=== PATIENT | male | born 1930 | race Two or more races ===

== ENCOUNTER 2018-09-29 09:54 | Emergency (ER) | payer MEDICARE ==
[~2018-09-29] VITALS: Ht 177.8 cm; Wt 84.4 kg
[2018-09-29 10:05] VITALS: BP 145/78
--- NOTE | 2018-09-29 10:42 | NUR ---
for discharge- ACI given verbalized understanding Home ambulatory in stable condition
== END 2018-09-29 10:42 | disposition home or self-care (01) ==
LOC: ER 09:56
DX: B35.6 Tinea cruris (principal); I10 Essential (primary) hypertension; E11.42 Type 2 diabetes mellitus with diabetic polyneuropathy; Z96.659 Presence of unspecified artificial knee joint; Z98.890 Other specified postprocedural states; Z60.2 Problems related to living alone
CPT/HCPCS: 99283; A4606; Z7610

== ENCOUNTER 2018-11-10 13:25 | Emergency (ER) | payer MEDICARE ==
[~2018-11-10] VITALS: Ht 180.3 cm; Wt 82.6 kg
--- NOTE | 2018-11-10 13:43 | NUR ---
C/O L RIB AREA PAIN S/P FALL, PT UNABLE TO RECALL IF HE SLIPPED OR FAINTED. DID NOT HIT HEAD, -KO. STATES HE WENT TO THE STORE AND WALKED AROUND AFTER FALL, THEN DECIDED TO COME HERE. PT IS AOX4, AMB, VSS, RR EVEN AND UNLABORED. SKIN WARM, DRY, INTACT. DENIES SOB, DIZZINESS, WEAKNESS, N/V. NO ACUTE DISTRESS NOTED. READY FOR EVAL.
--- NOTE | 2018-11-10 14:12 | NUR ---
XRAY AT BEDSIDE
--- NOTE | 2018-11-10 14:13 | NUR ---
PHLEB AT BEDSIDE FOR BLOOD DRAW
[2018-11-10 14:33] LABS: BASOPHILS % (AUTO) 0.5 % (0.0-2.0); EOSINOPHILS % (AUTO) 2.3 % (0.0-6.0); HEMATOCRIT 37 % (39-51); HEMOGLOBIN 12.2 g/dL (13.5-17.5); LYMPHOCYTES # (AUTO) 1.7 /CMM (0.8-4.8); LYMPHOCYTES % (AUTO) 18.8 % (20.0-44.0); MEAN CORPUSCULAR HGB CONC 33 g/dl (31.0-36.0); MEAN CORPUSCULAR VOLUME 92 fL (80-96); MONOCYTES # (AUTO) 0.6 /CMM (0.1-1.30); MONOCYTES % (AUTO) 6.7 % (2.0-12.0); NEUTROPHILS # (AUTO) 6.6 /CMM (1.8-8.9); NEUTROPHILS % (AUTO) 71.7 % (43.0-81.0); PLATELET COUNT (AUTO) 175 /CMM (150-450); WHITE BLOOD COUNT (AUTO) 9.2 K/uL (4.3-11.0)
[2018-11-10] MEDS ORDERED: DULO20CA18 PO (14:33)
[2018-11-10] MEDS ORDERED: ATOR10TA PO (14:33)
[2018-11-10] MEDS ORDERED: DUTA0.5C15 PO (14:33)
[2018-11-10] MEDS ORDERED: AMLO-62 PO (14:33)
[2018-11-10] MEDS ORDERED: LINA5TAB PO (14:33)
[2018-11-10] MEDS ORDERED: METF500T7 PO (14:33)
[2018-11-10] MEDS ORDERED: OMEP40CA37 PO (14:33)
[2018-11-10] MEDS ORDERED: DOXA4TAB3 PO (14:33)
[2018-11-10 14:49] LABS: CALCIUM, SERUM 8.8 mg/dL (8.5-10.1); CARBON DIOXIDE 30 mmol/L (21-32); CHLORIDE 104 mmol/L (98-107); GLUCOSE 113 mg/dL (74-106); POTASSIUM 4.1 mmol/L (3.5-5.1); SODIUM SERUM 140 mmol/L (136-145); UREA NITROGEN, BLOOD 26 mg/dL (7-18)
[2018-11-10 15:07] LABS: ALANINE AMINOTRANSFERASE 20 U/L (12-78); ALBUMIN 3.2 g/dL (3.4-5.0); ALKALINE PHOSPHATASE 105 U/L (46-116); ASPARTATE AMINOTRANSFERASE 12 U/L (15-37); BILIRUBIN,TOTAL 0.2 mg/dL (0.2-1.0); TOTAL PROTEIN, SERUM 6.7 g/dL (6.4-8.2)
[2018-11-10] MEDS ORDERED: IBUPROFEN 600 MG TABLET PO ONE (15:56)
--- NOTE | 2018-11-10 15:58 | NUR ---
PT RESTING COMFORTABLY IN BED. VSS. NO COMPLAINTS AT THIS TIME. WILL CONT TO MONITOR.
[2018-11-10] MEDS: IBUPROFEN 600 MG TABLET PO ONE (16:02)
[2018-11-10] MEDS: IV NS 0.9% 1,000 ML BAG IV ONE (16:11)
--- NOTE | 2018-11-10 16:12 | NUR ---
PT READY FOR DISCHARGE, PER MD PT CAN DRINK WATER INSTEAD OF IVF.
--- NOTE | 2018-11-10 16:29 | NUR ---
Patient discharged to home in stable condition. Written and verbal after care instructions given. Patient verbalizes understanding of instruction.
[2018-11-10 16:41] VITALS: BP 159/89
== END 2018-11-10 16:29 | disposition home or self-care (01) ==
LOC: ER 13:29
DX: S20.212A Contusion of left front wall of thorax, initial encounter (principal); E86.0 Dehydration; I10 Essential (primary) hypertension; E11.9 Type 2 diabetes mellitus without complications; G62.9 Polyneuropathy, unspecified; N40.0 Benign prostatic hyperplasia without lower urinary tract symptoms; R00.1 Bradycardia, unspecified; Z96.659 Presence of unspecified artificial knee joint; Z98.890 Other specified postprocedural states; Z60.2 Problems related to living alone; W01.198A Fall on same level from slipping, tripping and stumbling with subsequent striking against other object, initial encounter; Y93.89 Activity, other specified; Y92.89 Other specified places as the place of occurrence of the external cause; Y99.8 Other external cause status
CPT/HCPCS: 36415; 71100-TC; 73030-TC; 80048-TC; 80076-TC; 84484-TC; 85025-TC; 85730-TC; J7040

== ENCOUNTER 2020-08-26 12:55 | Inpatient (IN) | payer MEDICARE ==
[~2020-08-26] VITALS: Ht 180.3 cm; Wt 74.8 kg
[~2020-08-26 12:55] MED LIST: AMLO-62 PO; ATOR10TA PO; DOXA4TAB3 PO; DULO20CA19 PO; DUTA0.5C16 PO; LINA5TAB PO; METF-881 PO; OMEP40CA13 PO
[2020-08-26] MEDS ORDERED: IV NS 0.9% 1,000 ML BAG IV ONE (13:00)
[2020-08-26] MEDS ORDERED: TDAP [DIPH/PERTUSSIS/TET] 0.5 ML VIAL IM ONE ×2 (13:00→13:24)
--- NOTE | 2020-08-26 13:05 | NUR ---
[email or web address], from [facility], c/o weakness x 2 days, found on the ground, lac on the forehead and upper head, patient denies LOC. Patient a/ox3, breathing even and unlabored, no sob noted, needs attended, changed into a gown, attached to the cardiac cath lab manager.
--- NOTE | 2020-08-26 13:10 | NUR ---
iv line established, blood drawn from line and sent to lab.
[2020-08-26] MEDS ORDERED: MAG30ORA PO (13:37)
[2020-08-26] MEDS ORDERED: MULT-594 PO (13:37)
[2020-08-26] MEDS ORDERED: ASPI-1420 PO (13:37)
[2020-08-26] MEDS ORDERED: OMEG1CAP47 PO (13:37)
[2020-08-26] MEDS ORDERED: ACET-868 PO (13:37)
[2020-08-26] MEDS ORDERED: HYDR25TA4 PO (13:37)
[2020-08-26] MEDS ORDERED: ASPI-869 PO (13:39)
[2020-08-26 13:45] LABS: BASOPHILS % (AUTO) 0.1 % (0.0-2.0); HEMATOCRIT 42 % (39-51); HEMOGLOBIN 14.3 g/dL (13.5-17.5); LYMPHOCYTES # (AUTO) 0.4 /CMM (0.8-4.8); LYMPHOCYTES % (AUTO) 7.1 % (20.0-44.0); MEAN CORPUSCULAR HGB CONC 34 g/dl (31.0-36.0); MEAN CORPUSCULAR VOLUME 92 fL (80-96); MONOCYTES # (AUTO) 0.5 /CMM (0.1-1.30); MONOCYTES % (AUTO) 7.8 % (2.0-12.0); NEUTROPHILS # (AUTO) 4.9 /CMM (1.8-8.9); PLATELET COUNT (AUTO) 124 /CMM (150-450); RED BLOOD CELL COUNT(AUTO) 4.63 MIL/uL (4.5-6.0); WHITE BLOOD COUNT (AUTO) 5.8 K/uL (4.3-11.0)
--- NOTE | 2020-08-26 14:07 | NUR ---
[facility] CALLED TELE TECH PAGED.
[2020-08-26 14:16] LABS: CALCIUM, SERUM 8.7 mg/dL (8.5-10.1); CARBON DIOXIDE 25 mmol/L (21-32); CHLORIDE 102 mmol/L (98-107); CREATININE 1.4 mg/dL (0.6-1.3); GLUCOSE 159 mg/dL (74-106); POTASSIUM 3.3 mmol/L (3.5-5.1); SODIUM SERUM 140 mmol/L (136-145); UREA NITROGEN, BLOOD 35 mg/dL (7-18)
[2020-08-26 14:30] LABS: ALANINE AMINOTRANSFERASE 33 U/L (12-78); ALBUMIN 3.1 g/dL (3.4-5.0); ALKALINE PHOSPHATASE 85 U/L (46-116); ASPARTATE AMINOTRANSFERASE 75 U/L (15-37); BILIRUBIN,DIRECT 0.3 mg/dL (0.0-0.2); BILIRUBIN,TOTAL 0.9 mg/dL (0.2-1.0); TOTAL PROTEIN, SERUM 7.1 g/dL (6.4-8.2)
[2020-08-26] MEDS ORDERED: PIPERACILLIN /TAZOBACTAM 3.375 G VIAL IV ONE (14:51)
[2020-08-26] MEDS ORDERED: ASPIRIN 81 MG TAB.CHEW ONE (14:51)
[2020-08-26] MEDS ORDERED: PIPERACILLIN /TAZOBACTAM 3.375 G in IV D5W 50 ML IV ONE ×2 (15:00→18:00)
[2020-08-26] MEDS ORDERED: ASPIRIN 81 MG TAB.CHEW PO ONE (15:00)
--- NOTE | 2020-08-26 16:00 | NUR ---
COVID SWAB SENT
--- NOTE | 2020-08-26 16:22 | NUR ---
patient resting, no distress noted, vss
--- NOTE | 2020-08-26 16:56 | NUR ---
room 204
--- NOTE | 2020-08-26 17:59 | NUR ---
REPORT GIVEN TO YANICK YAO.
[2020-08-26] MEDS ORDERED: Z GUARD REMEDY 2 OZ OINT TP PRN (18:00)
[2020-08-26] MEDS ORDERED: ONDANSETRON HCL/PF 4 MG/2 ML VIAL IVP PRN (18:00)
[2020-08-26] MEDS ORDERED: MAGNESIUM HYDROXIDE 30 ML UDC PO PRN (18:00)
[2020-08-26] MEDS ORDERED: MAG HYDROX/AL HYDROX/SIMETH 30 ML UDC PO PRN (18:00)
[2020-08-26] MEDS ORDERED: DEXTROSE 50%-WATER 50 ML DISP.SYRIN IV PRN (18:00)
--- NOTE | 2020-08-26 18:10 | NUR ---
PATIENT TRANSFERRED TO ROOM 204-1 VIA ACLS PROTOCOL. NO DISTRESS NOTED. IN STABLE CONDITION. ENDORSED TO YANICK YAO.
--- NOTE | 2020-08-26 18:40 | NUR ---
PT BROUGHT IN TO UNIT FROM ER. C/O OF SYNCOPE AN COLLAPSE. VS CHECKED, T 97.8, P 83, R 20, BP 151/85, O2 95% ON ROOM AIR. PT IS AOX3. NO CARDIAC OR RESP DISTRESS NOTED. NO SOB NOTED. SATURATING WELL ON ROOM AIR. SAFETY PRECAUTIONS IN PLACE. BED LOCKED AND IN LOW POSITION. SIDE RAILS UPX2. BED ALARM GAS LEAK INSPECTOR LIGHT WITHIN REACH. WILL CONT TO MONITOR.
[2020-08-26] MEDS: ENOXAPARIN SODIUM 40 MG/0.4 ML DISP.SYRIN SQ SCH (19:04)
--- NOTE | 2020-08-26 19:20 | NUR ---
ADMISSION NOTE REPORT RECIEVED FROM YANICK YAO. PER REPORT PATIENT ARRIVED ON UNIT AT 1845. PT SEEN IN BED DENIES PAIN. PT ALERT AND ORIENTED X2 REORIENTED [address] PLACE AND REASON FOR HOSPITALIZATION. ANXIOUS SOFT SPOKEN. VS WNL NEW ORDERS RECIEVED. ADMISSION ASSESSMENT TO BE PERFORMED. BED DOWN LOCKED FALL PRECAUTIONS IN PLACE. WILL CONT TO MONITOR. DAUGHTER CALLED AND TRANSFERRED VIA PHONE TO ROOM.
[2020-08-26 20:00] VITALS: BP 137/80
[2020-08-26] MEDS: INSULIN REGULAR, HUMAN 100 UNIT/ML 3 ML VIAL SQ PRN (20:53)
[2020-08-26] MEDS: BLOOD SUGAR DIAGNOSTIC 1 EACH STRIP VI SCH (20:54)
--- NOTE | 2020-08-26 22:00 | NUR ---
TELEPHONE CALL WITH DAUGHTER MEGHNA; ADMISSION ASSESSMENT CLARIFIED; SPEAK TO MD REQUEST Spoke with daughter Meghna Toomin; reviewed patient admission assessment to verify information. pt somewhat poor historian. updated on status and poc. requesting to speak with md when they do rounds tomorrow. will endorse to next shift.
[2020-08-26] MEDS ORDERED: ZOLPIDEM TARTRATE 5 MG TABLET PO PRN (22:30)
[2020-08-27] VITALS: BP 153/70
[2020-08-27] MEDS: PIPERACILLIN /TAZOBACTAM 3.375 G in IV D5W 100 ML IV SCH ×4 (00:03→23:57)
--- NOTE | 2020-08-27 02:04 | NUR ---
ENDORSED TO MATTHEW YAO FOR MIYA.
--- NOTE | 2020-08-27 02:27 | NUR ---
RN NOTES PATIENT RECEIVED BY NAJMA VEGA. PATIENT RESTING IN BED, STABLE ON RA WITH BREATHING EVEN AND UNLABORED. NO SIGNS OF ACUTE DISTRESS. SAFETY PRECAUTIONS IN PLACE WITH BED IN LOWEST POSITION, CALL LIGHT WITHIN REACH, BREAKS ON, SIDE RAILS UP. WILL CONTINUE TO MONITOR.
[2020-08-27 04:00] VITALS: BP 136/78
[2020-08-27] MEDS: BLOOD SUGAR DIAGNOSTIC 1 EACH STRIP VI SCH ×4 (06:34→22:14)
[2020-08-27] MEDS: INSULIN REGULAR, HUMAN 100 UNIT/ML 3 ML VIAL SQ PRN (06:35)
--- NOTE | 2020-08-27 06:55 | NUR ---
RN CLOSING NOTES PATIENT IN BED RESTING, A/O X 2. STABLE ON RA WITH BREATHING EVEN AND UNLABORED, NO SOB NOTED. NO SIGNS OF ACUTE DISTRESS. TELE MONITOR READING SR. NO SIGNS OF PAIN OR DISCOMFORT AT THE MOMENT. IV LOCATED ON AC #18 SL. SAFETY PRECAUTIONS IN PLACE WITH BED IN LOWEST POSITION, CALL LIGHT WITHIN REACH, BREAKS ON, SIDE RAILS UP. ALL NEEDS ATTENDED TO. PATIENT KEPT CLEAN AND DRY THROUGHOUT THE NIGHT. WILL ENDORSE TO ONCOMING SHIFT ABOUT MIYA.
[2020-08-27 07:24] LABS: BASOPHILS % (AUTO) 0.2 % (0.0-2.0); HEMATOCRIT 41 % (39-51); HEMOGLOBIN 13.6 g/dL (13.5-17.5); LYMPHOCYTES # (AUTO) 0.5 /CMM (0.8-4.8); MEAN CORPUSCULAR HGB CONC 33 g/dl (31.0-36.0); MEAN CORPUSCULAR VOLUME 92 fL (80-96); MONOCYTES # (AUTO) 0.4 /CMM (0.1-1.30); MONOCYTES % (AUTO) 4.5 % (2.0-12.0); NEUTROPHILS # (AUTO) 7.9 /CMM (1.8-8.9); NEUTROPHILS % (AUTO) 89.3 % (43.0-81.0); PLATELET COUNT (AUTO) 127 /CMM (150-450); RED BLOOD CELL COUNT(AUTO) 4.47 MIL/uL (4.5-6.0); WHITE BLOOD COUNT (AUTO) 8.8 K/uL (4.3-11.0)
--- NOTE | 2020-08-27 07:30 | NUR ---
RN Opening Note Received patient in bed, AO x 2-3 confuse, able to responds all stimuli, does no appears pain or discomfort. Respiratory even and unlabored on room air O2sat 92%, no distress or SOB observed. Skin is warm to touch keep clean/dry, noticed patient pulled out IV on right AC, dockery. Kept locked bed with elevated HOB for ensure airway and aspiration precaution and lowest position for safety. Call light within reach, will continue to monitor.
[2020-08-27 08:00] VITALS: BP_SYST 143; BP_SYST 178; BP_DIAS 91; BP_DIAS 99
[2020-08-27 08:03] LABS: CALCIUM, SERUM 8.3 mg/dL (8.5-10.1); CREATININE 1.2 mg/dL (0.6-1.3); MAGNESIUM 2.2 mg/dL (1.8-2.4); PHOSPHORUS 2.8 mg/dL (2.5-4.9)
[2020-08-27 08:07] LABS: POTASSIUM 2.6 mmol/L (3.5-5.1)
--- NOTE | 2020-08-27 08:23 | NUR ---
WOUND CARE CONSULT: REVIEWED CHART, NURSING DOCUMENTATION AND PHOTOS WHICH INDICATE ABRASIONS AND DISCOLORED AREAS OF SKIN TO ELBOWS, KNEES, AND DRY DISCOLORED AREAS TO TOP OF HEAD, ALL PRESENT ON ADMISSION. RECOMMENDATIONS MADE FOR SKIN PROTECTION. DISCUSSED WITH NURSING STAFF. CURRENT ILYA SCORE IS 19. MD IN AGREEMENT WITH PLAN OF CARE.
[2020-08-27] MEDS: DULOXETINE HCL 20 MG CAPSULE.DR PO SCH (08:27)
[2020-08-27] MEDS: ATORVASTATIN 10 MG TABLET PO SCH (08:27)
[2020-08-27] MEDS: ASPIRIN EC 325 MG TABLET.DR PO SCH (08:27)
[2020-08-27] MEDS: DUTASTERIDE (0.5 MG) 0.5 MG CAPSULE PO SCH (08:59)
[2020-08-27] MEDS: POTASSIUM CHLORIDE 20 MEQ TAB.PRT.SR PO SCH ×5 (11:16→15:15)
[2020-08-27 12:00] VITALS: BP 178/99
--- NOTE | 2020-08-27 12:49 | NUR ---
[facility]/Meghna requested talk MD regarding update patient condition, informed Dr. Iraheta who will called [facility]. Also family member brought cell phone supercharger repair supervisor and adaptor and documented(added) on belongings form.
--- NOTE | 2020-08-27 12:53 | NUR ---
Freight Tallier consult requested by Dr. Marla Catalan. Per nursing notes, patient is alert and oriented x2-3. SW attempted to speak with the patient through hospital line per COVID-19 precautions. Patient did not answer hospital telephone line. SW to attempt again at a later time.
--- NOTE | 2020-08-27 13:04 | NUR ---
Received Covid -19 positive result from Lab.
[2020-08-27 16:00] VITALS: BP 168/99
--- NOTE | 2020-08-27 16:30 | NUR ---
Patient noticed attempted out of the bed and pulled put IV line x 2, received order soft wrist restraints, will continue to monitor for safety.
--- NOTE | 2020-08-27 18:00 | NUR ---
RN Closing note Patient in bed resting confuse attempted out of bed frequently received order soft wrist restraints. Pt does no appears discomfort, skin is warm to touch keep clean/dry. Respiratory even and unlabored on room air O2sat 93-92%, no sob or distress observed. Kept locked bed and elevated HOB for ensure airway and aspiration precaution, and lowest position for safety, bed alarm on at all the times, call light within reach, will endorse night assistant.
--- NOTE | 2020-08-27 19:00 | NUR ---
RN OPENING NOTES Received patient awake on bed, resting. On bilateral soft wrist restraints, pt noted pulling lines. No s/sx of injury noted at this time. On RA, no s/sx of discomfort/distress noted. On tele monitor with Sinus Tach noted. Kept on bed clean, dry and comfortable. On fall and aspiration precautions. Will continue to monitor accordingly.
[2020-08-27 20:04] VITALS: BP 181/96
[2020-08-27] MEDS: ENOXAPARIN SODIUM 40 MG/0.4 ML DISP.SYRIN SQ SCH (21:35)
[2020-08-27] MEDS: DOXYCYCLINE HYCLATE (100 MG) 100 MG TABLET PO SCH (21:35)
[2020-08-27] MEDS: *INSULIN REGULAR(HUMULIN R)HUM 100 UNIT/ML VIAL SQ PRN (22:16)
[2020-08-28 00:09] VITALS: BP 190/92
--- NOTE | 2020-08-28 02:30 | NUR ---
RN NOTES Endorsed to RN Diane for MIYA.
--- NOTE | 2020-08-28 02:45 | NUR ---
RN OPENING NOTED RECEIVED PATIENT IN BED RESTING SLEEPING,ALERT ORIENTED 2 VERBALLY RESPONSIVE NO SOB NOT ACUTE DISTRESS NOTED ON ROOM AIR O2:93% ON TELE MONITORING IV SITE IS ON RIGHT WRIST INTACT PATENT, HEAD OF BED ELEVATED,BED ALARM IS ON,BED IS IN LOW POSITION AND LOCKED,SIDE RAIL X3 UP CONTINUE TO MONITOR
[2020-08-28 04:34] VITALS: BP 158/93
[2020-08-28 06:20] LABS: BASOPHILS % (AUTO) 0.2 % (0.0-2.0); HEMATOCRIT 42 % (39-51); HEMOGLOBIN 14.3 g/dL (13.5-17.5); LYMPHOCYTES # (AUTO) 0.6 /CMM (0.8-4.8); LYMPHOCYTES % (AUTO) 5.6 % (20.0-44.0); MEAN CORPUSCULAR HGB CONC 34 g/dl (31.0-36.0); MEAN CORPUSCULAR VOLUME 90 fL (80-96); MONOCYTES # (AUTO) 0.4 /CMM (0.1-1.30); MONOCYTES % (AUTO) 3.5 % (2.0-12.0); NEUTROPHILS # (AUTO) 9.4 /CMM (1.8-8.9); NEUTROPHILS % (AUTO) 90.7 % (43.0-81.0); PLATELET COUNT (AUTO) 135 /CMM (150-450); RED BLOOD CELL COUNT(AUTO) 4.67 MIL/uL (4.5-6.0); WHITE BLOOD COUNT (AUTO) 10.3 K/uL (4.3-11.0)
--- NOTE | 2020-08-28 06:37 | NUR ---
RN CLOSING NOTE PATIENT REMAINS ALERT ORIENTED X2 VERBALLY RESPONSIVE NO SOB NOT ACUTE DISTRESS NOTED,ON ROOM AIR 93% ON MONITORING FOR COVID POSITIVE ALSO FOR CONTACT/DROPLET PRECAUTION,IV SITE IS ON RIGHT WRIST INTACT PATENT,IMPLEMENTED SAFETY MEASURE,BED ALARM IS ON,BED IN LOW POSITION AND LOCKED,HEAD OF BED ELEVATED ALL THE TIME,ALL DUE MEDS GIVEN MD ORDERED ,KEPT CLEAN AND DRY ALL THE TIME,KEPT COMFORTABLE,ALL NEEDS MET.ENDORSE NEXT COMING SHIFT FOR CONTINUATION OF CARE.
[2020-08-28 06:48] LABS: ALBUMIN 2.6 g/dL (3.4-5.0); BILIRUBIN,TOTAL 0.9 mg/dL (0.2-1.0); CALCIUM, SERUM 8.6 mg/dL (8.5-10.1); CREATININE 1.2 mg/dL (0.6-1.3); MAGNESIUM 2.2 mg/dL (1.8-2.4); PHOSPHORUS 2.2 mg/dL (2.5-4.9); TOTAL PROTEIN, SERUM 6.4 g/dL (6.4-8.2)
[2020-08-28] MEDS: IV NS 0.9% 500 ML IV PRN ×2 (06:59→21:37)
[2020-08-28] MEDS: PIPERACILLIN /TAZOBACTAM 3.375 G in IV D5W 100 ML IV SCH ×3 (06:59→22:54)
[2020-08-28 07:19] LABS: POTASSIUM 2.8 mmol/L (3.5-5.1)
--- NOTE | 2020-08-28 07:21 | NUR ---
X RAY INSPECTOR OPENING NOTES RECEIVED PATIENT IN BED, ASLEEP. PATIENT IS ON ROOM AIR; BREATHING IS EVEN AND UNLABORED; NO SOB PRESENT AT THIS TIME. NO S/S OF PAIN SUCH FACIAL GRIMACING, MOANING OR GUARDING. R WRIST IV ACCESS G #22 PRESENT AND INTACT. MEDICAL RESTRAINS ON FOR PATIENT SAFETY. SAFETY PRECAUTIONS IN PLACE; BED IN LOW POSITION AND LOCKED, RAILS UP X2, CALL LIGHT WITHIN REACH. WILL CONTINUE TO MONITOR PATIENT.
[2020-08-28] MEDS ORDERED: POTASSIUM PHOSPHATE MM 15 MMOL in IV NS 0.9% 250 ML IV SCH (07:30)
--- NOTE | 2020-08-28 07:50 | NUR ---
CONTRACT TECHNICAL WRITER NOTES LAB CALLED WITH A POTASSIUM LEVEL OF 2.8 READ BACK COMPLETED, NOTIFIED.
[2020-08-28] MEDS: BLOOD SUGAR DIAGNOSTIC 1 EACH STRIP VI SCH ×4 (08:14→21:14)
[2020-08-28] MEDS: POTASSIUM PHOSPHATE MM 7.5 MMOL in IV NS 0.9% 100 ML IV SCH ×2 (08:32→11:22)
[2020-08-28] MEDS: ATORVASTATIN 10 MG TABLET PO SCH (08:43)
[2020-08-28] MEDS: DOXYCYCLINE HYCLATE (100 MG) 100 MG TABLET PO SCH ×2 (08:43→21:13)
[2020-08-28] MEDS: POTASSIUM CHLORIDE 20 MEQ TAB.PRT.SR PO SCH ×5 (08:43→12:11)
[2020-08-28] MEDS: NEUTRA PHOS 1 POWD.PACKET PO SCH ×2 (08:43→16:09)
[2020-08-28] MEDS: DULOXETINE HCL 20 MG CAPSULE.DR PO SCH (08:43)
[2020-08-28] MEDS: ASPIRIN EC 325 MG TABLET.DR PO SCH (09:00)
[2020-08-28] MEDS: DUTASTERIDE (0.5 MG) 0.5 MG CAPSULE PO SCH (09:00)
[2020-08-28 09:01] VITALS: BP 164/81
--- NOTE | 2020-08-28 09:28 | NUR ---
ANALYTIC MANAGER NOTES PATIENT UNABLE TO SWALLOW ENTIRE PILLS. HIS MEDS ARE CRUSHED. TWO OF THE MEDICATIONS UNABLE TO ADMINISTER DUE TO THIS REASON. CALLED PHARMACY; THEY WILL TRY TO SUBSTITUTE.
[2020-08-28 10:22] LABS: C-REACTIVE PROTEIN 16.9 mg/dL (0.0-0.9)
[2020-08-28 12:46] VITALS: BP 155/95
[2020-08-28] MEDS: DEXAMETHASONE SOD PHOSPHATE 10 MG/ML VIAL IV SCH (13:38)
[2020-08-28] MEDS: ACETAMINOPHEN 325 MG TABLET PO PRN (13:38)
--- NOTE | 2020-08-28 14:15 | NUR ---
Reverberatory Furnace Operator consult requested by Dr. Marla Catalan. SW spoke with NAJMA Roach and NAJMA Roach informed this SW that the patient is hard of hearing and is unsure if this assessment should be conducted over the phone. NAJMA Roach also informed this SW that the patient is COVID positive. SW will attempt to speak with patient's daughter Meghna for social services manager assessment.
[2020-08-28 16:23] VITALS: BP 135/71
--- NOTE | 2020-08-28 17:26 | NUR ---
BUSINESS ADVISOR NOTES REPORT GIVEN TO GLORIA RN FOR CONTINUITY OF CARE
[2020-08-28] MEDS: INSULIN REGULAR, HUMAN 100 UNIT/ML 3 ML VIAL SQ PRN (17:49)
--- NOTE | 2020-08-28 18:27 | NUR ---
RN NOTE THE PATIENT IS ALERT AND ORIENTED X2. DENIES PAIN. RECEIVING OXYGEN AT 2L/MIN VIA NASAL CANNULA AND DENIES SOB. RESPIRATION REGULAR AND UNLABORED. DENIES PAIN. THE PATIENT IS IN NO APPARENT DISTRESS. RIGHT WRIST G 22 PATENT AND SALINE LOCKED. BED LOW AND LOCKED. SIDE RAILS UP X3. CALL LIGHT WITHIN REACH. WILL ENDORSE TO IRRIGATION TECHNICIAN.
--- NOTE | 2020-08-28 19:30 | NUR ---
RN NOTES RECEIVED PT. SLEEPING BUT AROUSABLE, SR ON TELE MONITOR HR-69, ON BILATERAL SOFT WRIST RESTRAINTS, NOT IN DISTRESS, NO PAIN NOTED, SIDERAILSUPX2, CONTINUE TO MONITOR
[2020-08-28 20:00] VITALS: BP_SYST 148; BP_SYST 162; BP_DIAS 86; BP_DIAS 91
[2020-08-28] MEDS: ENOXAPARIN SODIUM 40 MG/0.4 ML DISP.SYRIN SQ SCH (21:14)
[2020-08-28] MEDS: *INSULIN REGULAR(HUMULIN R)HUM 100 UNIT/ML VIAL SQ PRN (21:39)
[2020-08-29] VITALS: BP_SYST 150; BP_SYST 161; BP_DIAS 82; BP_DIAS 97
--- NOTE | 2020-08-29 00:50 | NUR ---
MS2/RN ASSUMED CARE FOR CONTINUITY OF CARE. PATIENT WAS IN BED SLEEPING APPEAR COMFORTABLE, NO DISTRESS NOTED, BREATHING EVEN AND UNLABORED,WITH 2L O2. WILL MONITOR. Addendum: 08/29/20 at 0111 by FLAQUITO QUINONES RN PLS. DISREGARD ABOVE DOCUMENTATION, ENTERED BY MISTAKE.
[2020-08-29 04:00] VITALS: BP_SYST 153; BP_SYST 167; BP_DIAS 83; BP_DIAS 97
[2020-08-29] MEDS: PIPERACILLIN /TAZOBACTAM 3.375 G in IV D5W 100 ML IV SCH ×3 (06:03→23:07)
[2020-08-29] MEDS: ACETAMINOPHEN 325 MG TABLET PO PRN (06:03)
[2020-08-29] MEDS: INSULIN REGULAR, HUMAN 100 UNIT/ML 3 ML VIAL SQ PRN ×2 (06:24→12:30)
--- NOTE | 2020-08-29 06:35 | NUR ---
RN NOTES AWAKE, MORNING CARE RENDERED, NOT IN DISTRESS, CALL LIGHT WITHIN REACH, SIDERAILSUPX2, BED IN LOCKED POSITION, PT. NEEDS ATTENDED
[2020-08-29 06:51] LABS: BASOPHILS % (AUTO) 0.2 % (0.0-2.0); HEMATOCRIT 44 % (39-51); HEMOGLOBIN 14.4 g/dL (13.5-17.5); LYMPHOCYTES # (AUTO) 0.8 /CMM (0.8-4.8); LYMPHOCYTES % (AUTO) 6.1 % (20.0-44.0); MEAN CORPUSCULAR HGB CONC 33 g/dl (31.0-36.0); MEAN CORPUSCULAR VOLUME 93 fL (80-96); MONOCYTES # (AUTO) 0.5 /CMM (0.1-1.30); MONOCYTES % (AUTO) 3.7 % (2.0-12.0); NEUTROPHILS # (AUTO) 12.2 /CMM (1.8-8.9); PLATELET COUNT (AUTO) 147 /CMM (150-450); RED BLOOD CELL COUNT(AUTO) 4.74 MIL/uL (4.5-6.0); WHITE BLOOD COUNT (AUTO) 13.5 K/uL (4.3-11.0)
[2020-08-29] MEDS: BLOOD SUGAR DIAGNOSTIC 1 EACH STRIP VI SCH ×4 (07:01→22:37)
--- NOTE | 2020-08-29 07:15 | NUR ---
COSMETIC MAKER NOTES PATIENT IN BED , HEAD OF BED ELEVATED , ALERT ORIENTED X 3. PATIENT CALM AND COOPERATIVE, FOLLOWS INSTRUCTIONS. NO ACUTE DISTRESS NOTED. BREATHING UNLABORED. NO SOB NOTED. IV ACCESS PATENT AND INTACT, NO REDNESS NO SWELLING , NO BLEEDING NOTED. SAFETY MEASURES IN PLACE. CALL LIGHT WITHIN REACH. WILL CONTINUE TO MONITOR ACCORDINGLY.
[2020-08-29 07:17] LABS: ALANINE AMINOTRANSFERASE 48 U/L (12-78); ALBUMIN 2.5 g/dL (3.4-5.0); ALKALINE PHOSPHATASE 85 U/L (46-116); ASPARTATE AMINOTRANSFERASE 82 U/L (15-37); BILIRUBIN,TOTAL 0.8 mg/dL (0.2-1.0); CALCIUM, SERUM 8.9 mg/dL (8.5-10.1); CARBON DIOXIDE 28 mmol/L (21-32); CHLORIDE 104 mmol/L (98-107); CREATININE 1.3 mg/dL (0.6-1.3); GLUCOSE 142 mg/dL (74-106); MAGNESIUM 2.5 mg/dL (1.8-2.4); PHOSPHORUS 2.1 mg/dL (2.5-4.9); POTASSIUM 3.3 mmol/L (3.5-5.1); SODIUM SERUM 142 mmol/L (136-145); TOTAL PROTEIN, SERUM 6.7 g/dL (6.4-8.2); UREA NITROGEN, BLOOD 38 mg/dL (7-18)
[2020-08-29 07:56] LABS: CREATINE KINASE, TOTAL 722 U/L (39-308); FERRITIN 4263 ng/mL (8-388)
[2020-08-29 08:00] VITALS: BP 157/92
[2020-08-29] MEDS ORDERED: POTASSIUM CHLORIDE 20 MEQ TAB.PRT.SR PO SCH (08:00)
[2020-08-29] MEDS: ASPIRIN 325 MG TABLET PO SCH (08:37)
[2020-08-29] MEDS: POTASSIUM CHLORIDE 20 MEQ POWDER PACKET PO SCH ×3 (08:37→10:59)
[2020-08-29] MEDS: DOXYCYCLINE HYCLATE (100 MG) 100 MG TABLET PO SCH ×2 (08:37→21:23)
[2020-08-29] MEDS: ATORVASTATIN 10 MG TABLET PO SCH (08:37)
[2020-08-29] MEDS: DEXAMETHASONE SOD PHOSPHATE 10 MG/ML VIAL IV SCH (08:37)
[2020-08-29] MEDS: DULOXETINE HCL 20 MG CAPSULE.DR PO SCH (08:37)
[2020-08-29] MEDS: VALSARTAN 80 MG TABLET PO SCH (08:38)
[2020-08-29] MEDS: DUTASTERIDE (0.5 MG) 0.5 MG CAPSULE PO SCH (08:59)
--- NOTE | 2020-08-29 09:00 | NUR ---
NEUROSURGICAL PHYSICIAN ASSISTANT NOTES GIVEN AVOD[employer] CAPSULE, PATIENT WAS ABLE TO SWALLOW WITHOUT COUGHING OR DIFFICULTIES, PATIENT TOLERATED WELL.
--- NOTE | 2020-08-29 11:20 | NUR ---
CONTAINER WASHER NOTES PATIENT NOTED ON DIRECTOR TEEN POST SINUS TACH ON 140'S TO 150'S, NOTIFIED DR CHER DOWD PRESENT ON THE FLOOR SAID HE WILL LOOK AT THE DIRECTOR TEEN POST, NO NEW ORDERS MADE AT THIS TIME. PATIENT ALERT ORIENTED X 3. NO ACUTE DISTRESS NOTED. BREATHING UNLABORED. NO SOB NOTED. DENIED ANY PAIN. BP 130/66 , RR 18, TEMP. 98.6, O2 SATURATION 94% ON 4 LPM VIA NC. PATIENT ASYMPTOMATIC. SAFETY MEASURES IN PLACE. WILL CONTINUE TO MONITOR ACCORDINGLY.
[2020-08-29] MEDS ORDERED: NEUTRA PHOS 1 POWD.PACKET PO ONE (11:30)
--- NOTE | 2020-08-29 12:48 | NUR ---
CEMENT BASED MATERIALS PUMP TENDER NOTES PATIENT SALES SERVICE SUPERVISOR SINUS TACH ON 135 TO [address], [address] CHER DOWD WITH NEW ORDER FOR STAT EKG AND NOTIFIED DR IYER , ORDERS CLARIFIED AND READ BACK WITH DR CHER BERMAN, NOTED AND CARRIED OUT WITH PATIENT ALERT ORIENTED X 3. NO ACUTE DISTRESS NOTED. BREATHING UNLABORED. NO SOB NOTED. DENIED ANY PAIN. BP 121/64 , RR 18, TEMP. 98.2, O2 SATURATION 94-95% ON 4 LPM VIA NC. PATIENT ASYMPTOMATIC. SAFETY MEASURES IN PLACE. WILL CONTINUE TO MONITOR ACCORDINGLY.
--- NOTE | 2020-08-29 12:51 | NUR ---
GENETIC PHYSICIAN NOTES SPOKE WITH DR IYER MADE AWARE THAT NOTED PATIENT CUSTOM MARINE CANVAS FABRICATOR SINUS TACH ON 135 TO 148, PATIENT ALERT ORIENTED X 3. NO ACUTE DISTRESS NOTED. BREATHING UNLABORED. NO SOB NOTED. DENIED ANY PAIN. BP 121/64 , RR 18, TEMP. 98.2, O2 SATURATION 94-95% ON 4 LPM VIA NC. PATIENT ASYMPTOMATIC. ALSO TOLD DR IYER THAT DR CHER DOWD ORDERED FOR STAT EKG, NO NEW ORDERS MADE BY DR IYER AT THIS TIME AND DR IYER SAID TO NOTIFY ONCE EKG RESULTED.
--- NOTE | 2020-08-29 13:04 | NUR ---
RENEWABLE ENERGY PROJECT MANAGER NOTES EKG DONE AND RESULTED, NOTIFIED DR JAYLON TRINIDAD, NO NEW ORDERS MADE AT THIS TIME. VITALS SIGNS WITHIN NORMAL LIMITS, NO ACUTE DISTRESS NOTED, BREATHING UNLABORED, NO SOB NOTED. DENIED ANY PAIN . PATIENT ASYMPTOMATIC. ALERT ORIENTED X 3. WILL CONTINUE TO MONITOR ACCORDINGLY.
[2020-08-29 16:00] VITALS: BP 145/75
[2020-08-29] MEDS ORDERED: AMIODARONE 450 MG in IV D5W 250 ML IV PRN ×3 (17:30→18:30)
--- NOTE | 2020-08-29 17:55 | NUR ---
BUSINESS ANALYTICS MANAGER NOTES TRANSFER OF CARE , REPORT GIVEN TO MARY ANN RN WILFRID. PATIENT ALERT ORIENTED X 3. NO ACUTE DISTRESS NOTED. NO SOB NOTED.DENIED ANY PAIN. VITAL SIGNS WITHIN NORMAL LIMITS. AFIB 140'S ON TELE MONITOR. SAFETY MEASURES IN PLACE. CALL LIGHT WITHIN REACH.
--- NOTE | 2020-08-29 17:55 | NUR ---
Received patient in bed, A/Ox2, on NC 4L, SPO2 90%, tolerating well, will follow up with amiodarone administration
[2020-08-29] MEDS ORDERED: AMIODARONE 150 MG in IV D5W 100 ML IV ONE (18:00)
--- NOTE | 2020-08-29 18:36 | NUR ---
Started bolus . HR 125, will monitor during administration
--- NOTE | 2020-08-29 18:45 | NUR ---
VITALS 135/76 hr 125 o2 91% resp 18 pain 0
--- NOTE | 2020-08-29 18:48 | NUR ---
HR 124 after bolus, jumping 126-135
--- NOTE | 2020-08-29 18:54 | NUR ---
awaiting for the second bag of medication, monitoring patient
[2020-08-29] MEDS: IV NS 0.9% 500 ML IV PRN (19:15)
--- NOTE | 2020-08-29 19:33 | NUR ---
started new drip of amiodarone @ 33.3cc/hr, tolerating well, VITALS BP 135/85 HR 84 RESP 14 O2SAT 94%
--- NOTE | 2020-08-29 19:37 | NUR ---
RN CLOSING NOTES PATIENT IN BED, HOB ELEVATED, COMFORTABLE, A/OX3, ON SIMPLE MASK @5L, TOLERATING WELL, SPO2 IS 94-95%, TOLERATING IV HYDRATION WELL, NO S/SX OF INFILTRATION, PATENT AND FLUSHED, SAFETY MEASURES IN PLACE, CALL LIGHT IN REACH, BED IS LOCKED, WILL ENDORSE TO PM SHIFT RN FOR MIYA
--- NOTE | 2020-08-29 19:40 | NUR ---
RN NOTE RECEIVED PATIENT IN BED WITH HOB ELEVATED. A/O X2. PT ON 02 VIA SIMPLE MASK AT 5L/MIN, TOLERATING WELL, SPO2 IS 92-95%, IV TO LEFT HAND PATENT INTACT AND FLUSHING WELL. AMIODARONE INFUSING AT 33.3ML/HR WITH NS AT 75ML/HR. SAFETY MEASURES IN PLACE, CALL LIGHT WITHIN IN REACH, BED LOCKED AND IN THE LOWEST POSITION, WILL CONTINUE TO MONITOR PT.
[2020-08-29 20:00] VITALS: BP 137/85
--- NOTE | 2020-08-29 20:29 | NUR ---
RN NOTE CALLED DAUGHTER FITO. OBTAINED VERBAL CONSENT FROM FITO AGUIRRE TO GIVE REMDESIVIR. PAHARMACY MADE AWARE
[2020-08-29] MEDS ORDERED: REMDESIVIR (INVESTIGATIONAL) 200 MG in IV NS 0.9% 210 ML IV ONE (21:00)
[2020-08-29] MEDS: ENOXAPARIN SODIUM 40 MG/0.4 ML DISP.SYRIN SQ SCH (21:24)
--- NOTE | 2020-08-29 22:00 | NUR ---
RN NOTE RECEIVED CALL FROM SALES MARKETING DIRECTOR PT NOW IN SINUS RHYTHM HR 80. EDOUARD CONT TO MONITOR PT
[2020-08-29] MEDS: *INSULIN REGULAR(HUMULIN R)HUM 100 UNIT/ML VIAL SQ PRN (22:48)
[2020-08-30] VITALS (8 sets, daily range): BP systolic 142–186; BP diastolic 80–99
--- NOTE | 2020-08-30 01:10 | NUR ---
RN NOTE UNABLE TO SCAN AMIODARONE. STARTED NEW RATE AT 0.5 MG/MIN (16.6 ML STARTED). PATIENT HR 88. REMAINS SINUS RHYTHM.
[2020-08-30] MEDS: ACETAMINOPHEN 325 MG TABLET PO PRN (02:28)
--- NOTE | 2020-08-30 03:00 | NUR ---
RN NOTE PT RESTING COMFORTABLY HR 73 CURRENTLY SR. WILL CONT. TO MONITOR PT
[2020-08-30 06:04] LABS: BASOPHILS % (AUTO) 0.1 % (0.0-2.0); HEMATOCRIT 40 % (39-51); HEMOGLOBIN 13.3 g/dL (13.5-17.5); LYMPHOCYTES # (AUTO) 0.9 /CMM (0.8-4.8); LYMPHOCYTES % (AUTO) 7.7 % (20.0-44.0); MEAN CORPUSCULAR HGB CONC 33 g/dl (31.0-36.0); MEAN CORPUSCULAR VOLUME 92 fL (80-96); MONOCYTES # (AUTO) 0.4 /CMM (0.1-1.30); MONOCYTES % (AUTO) 3.8 % (2.0-12.0); NEUTROPHILS # (AUTO) 9.7 /CMM (1.8-8.9); NEUTROPHILS % (AUTO) 88.4 % (43.0-81.0); PLATELET COUNT (AUTO) 127 /CMM (150-450); RED BLOOD CELL COUNT(AUTO) 4.36 MIL/uL (4.5-6.0)
[2020-08-30 06:20] LABS: ALBUMIN 2.1 g/dL (3.4-5.0); BILIRUBIN,TOTAL 0.6 mg/dL (0.2-1.0); CALCIUM, SERUM 8.1 mg/dL (8.5-10.1); CREATININE 1.2 mg/dL (0.6-1.3); PHOSPHORUS 2.4 mg/dL (2.5-4.9); POTASSIUM 3.2 mmol/L (3.5-5.1); TOTAL PROTEIN, SERUM 5.7 g/dL (6.4-8.2)
[2020-08-30 06:21] LABS: BILIRUBIN,DIRECT 0.2 mg/dL (0.0-0.2); BILIRUBIN,TOTAL 0.6 mg/dL (0.2-1.0); TOTAL PROTEIN, SERUM 5.7 g/dL (6.4-8.2)
--- NOTE | 2020-08-30 07:30 | NUR ---
RN OPENING NOTES PT IS AWAKE ALERT AND ORIENTED X2/3 PATIENT SPORTS BOOK BOARD ATTENDANT NORMAL SINUS IN 70-80'S. NO ACUTE DISTRESS NOTED. BREATHING UNLABORED. NO SOB NOTED. DENIED ANY PAIN. BP 160/95 , RR 19, TEMP. 98.8, O2 SATURATION 94-95% ON 5LPM VIA NC. PATIENT ASYMPTOMATIC. LAC#22. INTACT FLUSHING WELL. RUNNING NS @75 ML/HR. AND AMIODARONE @ 16.6 ML/HR. SAFETY MEASUREMENTS ARE IMPLEMENTED PER HOSPITAL POLICY. BED IS IN THE LOCKED POSITION .SIDE RAILS X2. BED ALARM IS ON. CALL LIGHT WITHIN THE REACH. WILL CONTUNIE TO MONITOR
[2020-08-30] MEDS: DULOXETINE HCL 20 MG CAPSULE.DR PO SCH (08:23)
[2020-08-30] MEDS: PIPERACILLIN /TAZOBACTAM 3.375 G in IV D5W 100 ML IV SCH ×3 (08:23→22:17)
[2020-08-30] MEDS: DOXYCYCLINE HYCLATE (100 MG) 100 MG TABLET PO SCH ×2 (08:23→21:07)
[2020-08-30] MEDS: ASPIRIN 325 MG TABLET PO SCH (08:23)
[2020-08-30] MEDS: ATORVASTATIN 10 MG TABLET PO SCH (08:23)
[2020-08-30] MEDS: DUTASTERIDE (0.5 MG) 0.5 MG CAPSULE PO SCH (08:23)
[2020-08-30] MEDS: DEXAMETHASONE SOD PHOSPHATE 10 MG/ML VIAL IV SCH (08:25)
[2020-08-30] MEDS: VALSARTAN 80 MG TABLET PO SCH (08:26)
[2020-08-30] MEDS: BLOOD SUGAR DIAGNOSTIC 1 EACH STRIP VI SCH ×4 (08:47→21:22)
[2020-08-30] MEDS: INSULIN REGULAR, HUMAN 100 UNIT/ML 3 ML VIAL SQ PRN ×3 (09:34→17:17)
--- NOTE | 2020-08-30 09:40 | NUR ---
RN NOTES ORDER FOR DC OF AMIODARONE
--- NOTE | 2020-08-30 10:00 | NUR ---
RN NOTES GAVE REPORT TO RACHID
--- NOTE | 2020-08-30 10:00 | NUR ---
PT AWAKE ALERT AND ORIENTED X2/3 PATIENT CASINO ENFORCEMENT AGENT NORMAL SINUS IN 70S. NO ACUTE DISTRESS NOTED. BREATHING UNLABORED. NO SOB NOTED. DENIED ANY PAIN. BP 169/96 , RR 19, TEMP. 98.8, O2 SATURATION 94-95% ON 5LPM VIA FACEMASK. PATIENT IN NO DISTRESS. L WRIST#22. INTACT FLUSHING WELL. RUNNING NS AND ZOSYN ORDERED. SAFETY MEASUREMENTS ARE IMPLEMENTED PER HOSPITAL POLICY. BED IS IN THE LOCKED POSITION .SIDE RAILS X2. BED ALARM IS ON. CALL LIGHT WITHIN THE REACH. WILL CONTINUE TO MONITOR AND REPORT NEEDED.
[2020-08-30] MEDS: SOTALOL HCL 80 MG TABLET PO SCH (10:51)
[2020-08-30] MEDS: POTASSIUM CHLORIDE 20 MEQ TAB.PRT.SR PO SCH ×2 (11:20→12:09)
[2020-08-30] MEDS ORDERED: K PHOS NEUTRAL 250 MG TABLET PO ONE (11:30)
[2020-08-30 12:27] LABS: C-REACTIVE PROTEIN 6.2 mg/dL (0.0-0.9)
[2020-08-30] MEDS: AMLODIPINE BESYLATE 5 MG TABLET PO SCH (18:15)
--- NOTE | 2020-08-30 18:38 | NUR ---
PT AWAKE ALERT AND ORIENTED X2/3 PATIENT CLEANER AND PREPARER NORMAL SINUS IN 60S. NO ACUTE DISTRESS NOTED. BREATHING UNLABORED. NO SOB NOTED. DENIED ANY PAIN. BP 186/99 AND MD NOTIFIED AND ORDER FOR NORVASC DAILY 5 MG IMPLEMENTED W FIRST DOSE STARTING NOW. O2 SATURATION 94-95% ON 5LPM VIA FACEMASK. PATIENT IN NO DISTRESS. L WRIST#22. INTACT FLUSHING WELL. RUNNING NS AND ZOSYN ORDERED. SAFETY MEASUREMENTS ARE IMPLEMENTED PER HOSPITAL POLICY. BED IS IN THE LOCKED POSITION .SIDE RAILS X2. BED ALARM IS ON. CALL LIGHT WITHIN THE REACH. TURNED Q2H. MONITORED CONDITION THROUGHOUT SHIFT AND REPORTED NEEDED. WILL ENDORSE TO PM RN.
[2020-08-30] MEDS: REMDESIVIR (INVESTIGATIONAL) 100 MG in IV NS 0.9% 230 ML IV SCH (19:38)
--- NOTE | 2020-08-30 20:03 | NUR ---
TELE/RN OPENING NOTE Patient awake in bed, A/O x3-4, bed rest. Tele monitor reading sinus rhythm 70s. HOB elevated. CRP <3seconds. No JVD. No tracheal deviation. PERRLA. EENT WNL. Skin warm, pink, dry appropriate for ethnicity. Abrasions noted on bilateral knees and elbows, open to air. Breathing even, unlabored. No acute distress or SOB, on face mask 5LPM, saturating well. Patient is incontinent. Patient on CCHO diet, tolerating well. IV site left wrist 22g running NS @ 75 ml/hr. No redness or infiltration. No edema. Bed in low position, wheels locked, side rails up x2, call light within reach.
[2020-08-30] MEDS: HYDROCODONE/APAP 5/325MG TABLET PO PRN (21:06)
[2020-08-30] MEDS: ENOXAPARIN SODIUM 40 MG/0.4 ML DISP.SYRIN SQ SCH (21:08)
--- NOTE | 2020-08-30 23:44 | NUR ---
TELE/RN NOTE Patient BP 170/85. Patient pain level 7 in bilateral knees, aching and throbbing. Administered PRN norco as ordered. Patient pain level rechecked: level 1. BP rechecked 145/90.
[2020-08-31] VITALS (10 sets, daily range): BP systolic 133–160; BP diastolic 66–93
[2020-08-31] MEDS: HYDROCODONE/APAP 5/325MG TABLET PO PRN ×2 (04:49→18:40)
--- NOTE | 2020-08-31 05:35 | NUR ---
TELE/RN NOTE Patient BP 175/81. Administered PRN norco for pain level 8, aching and throbbing in knees. BP rechecked 145/93. Pain level 2. Will continue to monitor.
[2020-08-31] MEDS: PIPERACILLIN /TAZOBACTAM 3.375 G in IV D5W 100 ML IV SCH ×3 (06:12→23:01)
[2020-08-31] MEDS: BLOOD SUGAR DIAGNOSTIC 1 EACH STRIP VI SCH ×4 (06:31→21:33)
[2020-08-31 06:47] LABS: BASOPHILS % (AUTO) 0.1 % (0.0-2.0); HEMATOCRIT 41 % (39-51); HEMOGLOBIN 13.7 g/dL (13.5-17.5); LYMPHOCYTES # (AUTO) 1.1 /CMM (0.8-4.8); LYMPHOCYTES % (AUTO) 9.1 % (20.0-44.0); MEAN CORPUSCULAR HGB CONC 33 g/dl (31.0-36.0); MEAN CORPUSCULAR VOLUME 92 fL (80-96); MONOCYTES # (AUTO) 0.5 /CMM (0.1-1.30); MONOCYTES % (AUTO) 4.1 % (2.0-12.0); NEUTROPHILS # (AUTO) 10.7 /CMM (1.8-8.9); NEUTROPHILS % (AUTO) 86.7 % (43.0-81.0); PLATELET COUNT (AUTO) 129 /CMM (150-450); RED BLOOD CELL COUNT(AUTO) 4.51 MIL/uL (4.5-6.0); WHITE BLOOD COUNT (AUTO) 12.4 K/uL (4.3-11.0)
[2020-08-31 07:06] LABS: ALBUMIN 1.9 g/dL (3.4-5.0); BILIRUBIN,DIRECT 0.2 mg/dL (0.0-0.2); BILIRUBIN,TOTAL 0.7 mg/dL (0.2-1.0); CALCIUM, SERUM 8.1 mg/dL (8.5-10.1); CREATININE 1.2 mg/dL (0.6-1.3); PHOSPHORUS 3.3 mg/dL (2.5-4.9); POTASSIUM 3.3 mmol/L (3.5-5.1); TOTAL PROTEIN, SERUM 5.5 g/dL (6.4-8.2)
--- NOTE | 2020-08-31 07:09 | NUR ---
TELE/RN CLOSING NOTE Patient asleep in bed, A/O x3-4, bedrest. Tele monitor reading sinus rhythm 70s. HOB elevated. Abrasions noted on bilateral knees and elbows, open to air. Breathing even, unlabored. No acute distress or SOB, on face mask 5LPM, saturating well. Patient is incontinent. Patient on CCHO diet, appetite fair. IV site left wrist 22g running NS @ 75 ml/hr. No redness or infiltration. No edema. Bed in low position, wheels locked, side rails up x2, call light within reach.
--- NOTE | 2020-08-31 07:43 | NUR ---
RN NOTE Per Dr. Glenda Kern, to transfuse 1 unit convalescent plasma at this time. Order repeated back and will carry out. Notified blood bank and they stated there was an ordered placed yesterday and the plasma was ready around 1900 however, no nurse had answered the phone and plasma was not picked up last night. Placed new order for convalescent plasma. Paperwork has already been properly filled out per blood bank.
--- NOTE | 2020-08-31 07:50 | NUR ---
RN OPENING NOTE Patient is resting in bed, A/O x2-3, patient has episodes of SOB upon exertion, currently on 5L simple face mask. Tele monitor SR 59. Patient denies and pain or discomfort at this time. IV line in the left wrist #22g is clean and intact flushing well. Patient turned and repositioned. Bed is in lowest position, side rails x3 in upright position, call light is within reach, fall safety and aspiration precautions enforced. Will continue with plan of care.
[2020-08-31] MEDS: DEXAMETHASONE SOD PHOSPHATE 10 MG/ML VIAL IV SCH (08:11)
[2020-08-31] MEDS: DOXYCYCLINE HYCLATE (100 MG) 100 MG TABLET PO SCH ×2 (08:11→21:04)
[2020-08-31] MEDS: ASPIRIN 325 MG TABLET PO SCH (08:11)
[2020-08-31] MEDS: VALSARTAN 80 MG TABLET PO SCH (08:12)
[2020-08-31] MEDS: DULOXETINE HCL 20 MG CAPSULE.DR PO SCH (08:12)
[2020-08-31] MEDS: ATORVASTATIN 10 MG TABLET PO SCH (08:12)
[2020-08-31] MEDS: AMLODIPINE BESYLATE 5 MG TABLET PO SCH (08:12)
[2020-08-31] MEDS: SOTALOL HCL 80 MG TABLET PO SCH (08:14)
[2020-08-31] MEDS: DUTASTERIDE (0.5 MG) 0.5 MG CAPSULE PO SCH (08:14)
--- NOTE | 2020-08-31 09:00 | NUR ---
RN NOTE Titrated o2 to 4L NC and patient desaturating to 88-89%. Patient placed back on face mask 5L. Dr. Doshi notified.
[2020-08-31] MEDS ORDERED: POTASSIUM CHLORIDE 20 MEQ TAB.PRT.SR PO SCH ×2 (10:30→12:30)
--- NOTE | 2020-08-31 11:02 | NUR ---
RN NOTE Conv. plasma transfused. Patient remains stable, VS stable. Will continue with plan of care.
[2020-08-31] MEDS: INSULIN REGULAR, HUMAN 100 UNIT/ML 3 ML VIAL SQ PRN ×2 (12:37→16:43)
[2020-08-31] MEDS: APIXABAN 5 MG TABLET PO SCH (16:18)
--- NOTE | 2020-08-31 19:04 | NUR ---
RN CLOSING NOTE Patient is resting in bed, A/O x2-3, patient has episodes of SOB upon exertion, currently on 5L simple face mask. Tele monitor SR 59. Patient c/o pain 7/10 on right medial back. Patient turned and repositioned, norco given PRN. IV line in the left wrist #22g is clean and intact flushing well. Patient turned and repositioned q 2 hrs. All patient needs met, all due medications given, patient kept clean and dry throughout shift. Bed is in lowest position, side rails x3 in upright position, call light is within reach, fall safety and aspiration precautions enforced. Isolation precautions enforced d/t COVID positive. Will endorse to night shift manager.
--- NOTE | 2020-08-31 19:30 | NUR ---
ROD CUP FILLER NOTES RECEIVED ON BED ON HIGH FOWLERS POSITION,BREATHING NON LABORED,O2 5L FACE MASK IN USED,IV ZOSYN INFUSING WELL ON LEFT HAND SALINE LOCK VIA IV PUMP.DVT PUMP IN USED,ON ISOFLEX FOR SKIN MANAGEMENT.WILL REPOSITION PER PROTOCOL.CALL LIGHT IN REACH,NEEDS ANTICIPATED.
[2020-08-31] MEDS: REMDESIVIR (INVESTIGATIONAL) 100 MG in IV NS 0.9% 230 ML IV SCH (19:36)
--- NOTE | 2020-08-31 22:00 | NUR ---
DIRECTOR OF CORPORATE RESPONSIBILITY NOTES ACCU-CHECK BLOOD SUGAR CHECK 114,NO INSULIN COVERAGE.DUE PO MEDS ADMINISTERED WITH APPLE SAUCE,TAKEN WELL.NEGATIVE FOR ASPIRATION
[2020-09-01] VITALS (9 sets, daily range): BP systolic 105–167; BP diastolic 70–93
--- NOTE | 2020-09-01 | NUR ---
COSTUME DRAPER NOTES BLOOD PRESSURE 163/87,PULSE-53,ASYMPTOMATI,DENIES PAIN.WILL RE CHECK MANUALLY.
--- NOTE | 2020-09-01 01:30 | NUR ---
FLEET ADMINISTRATIVE ASSISTANT NOTES BLOOD PRESSURE RECHECK MANUALLY 154/84,SLEEPING
[2020-09-01] MEDS: HYDROCODONE/APAP 5/325MG TABLET PO PRN (05:03)
--- NOTE | 2020-09-01 05:03 | NUR ---
SUPERVISOR BRAKE REPAIR NOTES PAIN MANAGEMENT C/O RIGHT LOWER BACK PAIN,NORCO 5/325MG,1 TAB PO GIVEN WITH APPLE SAUCE,TAKEN WELL.
--- NOTE | 2020-09-01 05:30 | NUR ---
HOSPITAL FOOD SERVICE WORKER NOTES ACCU-CHECK BLOOD SUGAR CHECK 123,NO INSULIN COVERAGE.
[2020-09-01] MEDS: BLOOD SUGAR DIAGNOSTIC 1 EACH STRIP VI SCH ×4 (05:35→22:34)
--- NOTE | 2020-09-01 06:19 | NUR ---
REVISING CLERK NOTES SLEPT WITH INTERVALS,AFEBRILE THRU OUT SHIFT,NO SOB,O2 SAT WNL,CRUSHED PO MEDS TOLERATED WELL.NEGATIVE FOR ASPIRATION,O2 REMAINS AT 5L/MASK,O2 SAT95%.IN NO ACUTE DISTRESS.WILL ENDORSE TO DAY NURSE FOR MIYA.
[2020-09-01] MEDS: PIPERACILLIN /TAZOBACTAM 3.375 G in IV D5W 100 ML IV SCH ×3 (06:29→22:23)
[2020-09-01 06:38] LABS: EOSINOPHILS % (AUTO) 0.2 % (0.0-6.0); HEMATOCRIT 40 % (39-51); HEMOGLOBIN 13.3 g/dL (13.5-17.5); LYMPHOCYTES # (AUTO) 1.2 /CMM (0.8-4.8); LYMPHOCYTES % (AUTO) 8.5 % (20.0-44.0); MEAN CORPUSCULAR HGB CONC 33 g/dl (31.0-36.0); MEAN CORPUSCULAR VOLUME 91 fL (80-96); MONOCYTES # (AUTO) 0.5 /CMM (0.1-1.30); MONOCYTES % (AUTO) 3.5 % (2.0-12.0); NEUTROPHILS # (AUTO) 12.5 /CMM (1.8-8.9); NEUTROPHILS % (AUTO) 87.8 % (43.0-81.0); PLATELET COUNT (AUTO) 118 /CMM (150-450); WHITE BLOOD COUNT (AUTO) 14.2 K/uL (4.3-11.0)
[2020-09-01 07:05] LABS: BILIRUBIN,DIRECT 0.3 mg/dL (0.0-0.2); BILIRUBIN,TOTAL 0.9 mg/dL (0.2-1.0); CREATININE 1.1 mg/dL (0.6-1.3); POTASSIUM 3.2 mmol/L (3.5-5.1); TOTAL PROTEIN, SERUM 5.4 g/dL (6.4-8.2)
[2020-09-01] MEDS: DOXYCYCLINE HYCLATE (100 MG) 100 MG TABLET PO SCH ×2 (08:13→20:36)
[2020-09-01] MEDS: DEXAMETHASONE SOD PHOSPHATE 10 MG/ML VIAL IV SCH (08:13)
[2020-09-01] MEDS: ATORVASTATIN 10 MG TABLET PO SCH (08:13)
[2020-09-01] MEDS: SOTALOL HCL 80 MG TABLET PO SCH (08:13)
[2020-09-01] MEDS: DUTASTERIDE (0.5 MG) 0.5 MG CAPSULE PO SCH (08:13)
[2020-09-01] MEDS: DULOXETINE HCL 20 MG CAPSULE.DR PO SCH (08:16)
[2020-09-01] MEDS: APIXABAN 5 MG TABLET PO SCH ×2 (08:16→16:40)
[2020-09-01] MEDS: VALSARTAN 80 MG TABLET PO SCH (08:16)
[2020-09-01] MEDS: AMLODIPINE BESYLATE 5 MG TABLET PO SCH (08:16)
[2020-09-01] MEDS: ASPIRIN 325 MG TABLET PO SCH (08:16)
[2020-09-01] MEDS: POTASSIUM CHLORIDE 20 MEQ TAB.PRT.SR PO SCH ×3 (09:15→10:23)
--- NOTE | 2020-09-01 11:08 | NUR ---
rn notes pt refused insulin
--- NOTE | 2020-09-01 17:24 | NUR ---
rn notes patient remains on 5L mask at this time. Patient has confusion that goes in and out. Patient re directable. Patient pulled out an IV line earlier from confusion. Still has a left hand IV access. Patient refused his insulin, it was in the 160 blood sugar. Showing some aggression at times. Remdesivir to be given tonight, 2/4 already done. Plan is to DC plan after remdesivir doses. Bed at the lowest setting, call light within reach, side rails up x2.
--- NOTE | 2020-09-01 18:54 | NUR ---
rn notes patient was found around 1530, to be in the floor. Patient slid to the floor from sitting position on the edge of the bed. No bleeding noted. Patient is confused most of the time but this was the only time he tried moving away from the bed. Patient also pulled IV line.
--- NOTE | 2020-09-01 19:21 | NUR ---
rn notes patients fall documented in the risk report, charge nruse aware, family aware. MD aware with no new orders at this time
--- NOTE | 2020-09-01 19:30 | NUR ---
TELE/RN OPENING NOTES RECEIVED PATIENT IN BED RESTING. PATIENT IS ALERT AND ORIENTED X 2. NO SIGNS OF SOB OR RESPIRATORY DISTRESS NOTED. BREATHING IS EVEN AND UNLABORED. PATIENT IN NO SIGNS OF DISTRESS. TELE READING SB. PATIENT HAS IV ACCESS ON LEFT HAND #20G INTACT. SAFETY MEASURES ARE IN PLACE FALL PRECAUTIONS IN PLACE,, BED IS LOCKED AND PLACED IN THE LOW POSITION, SIDE RAILS UP X 3, BED ALARM ON. CALL LIGHT IS WITHIN REACH. WILL CONTINUE TO MONITOR THROUGH OUT SHIFT.
[2020-09-01] MEDS: REMDESIVIR (INVESTIGATIONAL) 100 MG in IV NS 0.9% 230 ML IV SCH (20:06)
[2020-09-01] MEDS: *INSULIN REGULAR(HUMULIN R)HUM 100 UNIT/ML VIAL SQ PRN (22:36)
[2020-09-02] VITALS: BP 153/80
[2020-09-02 04:00] VITALS: BP 151/79
[2020-09-02] MEDS: PIPERACILLIN /TAZOBACTAM 3.375 G in IV D5W 100 ML IV SCH ×3 (06:19→22:25)
[2020-09-02] MEDS: BLOOD SUGAR DIAGNOSTIC 1 EACH STRIP VI SCH ×4 (06:32→21:39)
--- NOTE | 2020-09-02 06:40 | NUR ---
TELE/RN CLOSING NOTES PATIENT IN BED RESTING. PATIENT IS ALERT AND ORIENTED X 2. NO SIGNS OF SOB OR RESPIRATORY DISTRESS NOTED. BREATHING IS EVEN AND UNLABORED. PATIENT IN NO SIGNS OF DISTRESS. TELE READING SB 59, PATIENT ON 6L MASK STAT AT 96%. PATIENT HAS IV ACCESS ON LEFT HAND #20G INTACT. ALL PATIENT NEEDS HAVE BEEN MET DURING SHIFT. SAFETY MEASURES ARE IN PLACE FALL PRECAUTIONS IN PLACE,, BED IS LOCKED AND PLACED IN THE LOW POSITION, SIDE RAILS UP X 3, BED ALARM ON. CALL LIGHT IS WITHIN REACH. WILL ENDORSE CARE TO DAY SHIFT.
[2020-09-02 07:27] LABS: EOSINOPHILS % (AUTO) 0.2 % (0.0-6.0); HEMATOCRIT 40 % (39-51); HEMOGLOBIN 13.1 g/dL (13.5-17.5); LYMPHOCYTES # (AUTO) 1.3 /CMM (0.8-4.8); LYMPHOCYTES % (AUTO) 9.3 % (20.0-44.0); MEAN CORPUSCULAR HGB CONC 33 g/dl (31.0-36.0); MEAN CORPUSCULAR VOLUME 91 fL (80-96); MONOCYTES # (AUTO) 0.6 /CMM (0.1-1.30); MONOCYTES % (AUTO) 4.3 % (2.0-12.0); NEUTROPHILS % (AUTO) 86.2 % (43.0-81.0); PLATELET COUNT (AUTO) 123 /CMM (150-450); RED BLOOD CELL COUNT(AUTO) 4.35 MIL/uL (4.5-6.0); WHITE BLOOD COUNT (AUTO) 13.9 K/uL (4.3-11.0)
[2020-09-02 07:45] LABS: ALANINE AMINOTRANSFERASE 64 U/L (12-78); ALKALINE PHOSPHATASE 105 U/L (46-116); ASPARTATE AMINOTRANSFERASE 95 U/L (15-37); BILIRUBIN,DIRECT 0.4 mg/dL (0.0-0.2); BILIRUBIN,TOTAL 0.8 mg/dL (0.2-1.0); CARBON DIOXIDE 26 mmol/L (21-32); CHLORIDE 108 mmol/L (98-107); CREATININE 1.3 mg/dL (0.6-1.3); GLUCOSE 118 mg/dL (74-106); SODIUM SERUM 144 mmol/L (136-145); TOTAL PROTEIN, SERUM 5.5 g/dL (6.4-8.2); UREA NITROGEN, BLOOD 43 mg/dL (7-18)
[2020-09-02 07:49] LABS: POTASSIUM 2.8 mmol/L (3.5-5.1)
[2020-09-02 08:00] VITALS: BP 167/98
[2020-09-02] MEDS: DEXAMETHASONE SOD PHOSPHATE 10 MG/ML VIAL IV SCH (09:02)
[2020-09-02] MEDS: DOXYCYCLINE HYCLATE (100 MG) 100 MG TABLET PO SCH ×2 (09:03→20:15)
[2020-09-02] MEDS: ASPIRIN 325 MG TABLET PO SCH (09:03)
[2020-09-02] MEDS: VALSARTAN 80 MG TABLET PO SCH (09:03)
[2020-09-02] MEDS: DULOXETINE HCL 20 MG CAPSULE.DR PO SCH (09:04)
[2020-09-02] MEDS: ATORVASTATIN 10 MG TABLET PO SCH (09:04)
[2020-09-02] MEDS: AMLODIPINE BESYLATE 5 MG TABLET PO SCH (09:04)
[2020-09-02] MEDS: DUTASTERIDE (0.5 MG) 0.5 MG CAPSULE PO SCH (09:04)
[2020-09-02] MEDS: SOTALOL HCL 80 MG TABLET PO SCH (09:05)
[2020-09-02] MEDS: APIXABAN 5 MG TABLET PO SCH ×2 (09:24→16:48)
[2020-09-02] MEDS ORDERED: POTASSIUM CHLORIDE 20 MEQ TAB.PRT.SR PO SCH (10:00)
[2020-09-02] MEDS ORDERED: POTASSIUM CHLORIDE 20 MEQ POWDER PACKET GT SCH (10:00)
[2020-09-02] MEDS: POTASSIUM CHLORIDE 20 MEQ POWDER PACKET PO SCH ×3 (11:25→12:09)
[2020-09-02 12:00] VITALS: BP 137/79
[2020-09-02] MEDS: NITROGLYCERIN 30 GM TUBE TP SCH ×2 (12:09→21:30)
[2020-09-02] MEDS: INSULIN REGULAR, HUMAN 100 UNIT/ML 3 ML VIAL SQ PRN ×2 (12:12→16:57)
--- NOTE | 2020-09-02 12:28 | NUR ---
Oxygen flow change to 4L and simple mask changed to Nasal Canula .
[2020-09-02] MEDS: hydrALAZINE HCL 50 MG TABLET PO SCH ×2 (15:26→16:55)
[2020-09-02 16:00] VITALS: BP_SYST 157; BP_SYST 167; BP_DIAS 86; BP_DIAS 98
--- NOTE | 2020-09-02 18:10 | NUR ---
Patient is resting in bed. remains confused and disoriented. He needs frequent re-orientation. High risk for fall, bed alarm on at all times. Patient was able to up from bed with PT and had a few steps with maximum assistance and walker. Patient's gait is not steady. Poor appetite and oral fluid intake. Patient was placed on 4L oxygen via NC , saturation 96%. Patient removes NS constantly , able to tolerate room air with satiation 91%. Safety precautions implemented at all times; all needs attended. Will endorse to next shift for MIYA
--- NOTE | 2020-09-02 19:30 | NUR ---
TELE/RN OPENING NOTES: RECEIVED PATIENT RESTING IN BED. A/O X 2. NO S/S OF SOB OR RESPIRATORY DISTRESS NOTED. BREATHING EVEN AND UNLABORED. NO SIGNS OF DISTRESS. TELE READING SR. IV ACCESS ON LEFT HAND #20G INTACT. SAFETY MEASURES ARE IN PLACE. FALL PRECAUTIONS IN PLACE,, BED IS LOCKED AND PLACED IN THE LOW POSITION, SIDE RAILS UP X 3, BED ALARM ON. CALL LIGHT IS WITHIN REACH. WILL CONTINUE TO MONITOR THROUGH OUT SHIFT.
[2020-09-02 20:00] VITALS: BP 142/81
[2020-09-02] MEDS: REMDESIVIR (INVESTIGATIONAL) 100 MG in IV NS 0.9% 230 ML IV SCH (20:13)
[2020-09-02] MEDS ORDERED: ALBUTEROL SULFATE INH 18 GM HFA.AER.AD IH PRN (20:30)
[2020-09-02] MEDS: *INSULIN REGULAR(HUMULIN R)HUM 100 UNIT/ML VIAL SQ PRN (21:39)
--- NOTE | 2020-09-02 22:00 | NUR ---
TELE/RN NOTES: ACCUCHECK FOR HS IS 126. NO INSULIN COVERAGE NEEDED PER SLIDING SCALE. NO S/S OF HYPOGLYCEMIA. PT STABLE. WILL CONTINUE TO MONITOR ACCORDINGLY.
[2020-09-03] VITALS: BP 146/71
[2020-09-03] MEDS: HYDROCODONE/APAP 5/325MG TABLET PO PRN (03:17)
--- NOTE | 2020-09-03 03:17 | NUR ---
TELE/RN NOTES: PT COMPLAINING OF PAIN ON HIS BACK 02/24. VSS. ADMINISTERED NORCO 5/325MG PO ORDERED FOR PAIN. TOLERATED WELL. WILL CONTINUE TO MONITOR.
[2020-09-03 04:00] VITALS: BP_SYST 131; BP_SYST 137; BP_DIAS 54; BP_DIAS 77
[2020-09-03] MEDS: BLOOD SUGAR DIAGNOSTIC 1 EACH STRIP VI SCH ×4 (06:38→21:28)
[2020-09-03] MEDS: INSULIN REGULAR, HUMAN 100 UNIT/ML 3 ML VIAL SQ PRN ×2 (06:39→21:23)
--- NOTE | 2020-09-03 06:40 | NUR ---
TELE/RN NOTES: ACCUCHECK FOR AC IS 109. NO INSULIN COVERAGE NEEDED PER SLIDING SCALE. NO S/S OF HYPOGLYCEMIA. PT STABLE. WILL CONTINUE TO MONITOR ACCORDINGLY.
--- NOTE | 2020-09-03 06:44 | NUR ---
TELE/RN CLOSING NOTES: PATIENT REMAINS RESTING IN BED. A/O X 1. SLEPT WELL AND GOT ENOUGH REST. PER PT "I FEEL BETTER". ON 4L OF OXYGEN VIA NC. NO S/S OF SOB OR RESPIRATORY DISTRESS NOTED. BREATHING EVEN AND UNLABORED. NO SIGNS OF DISTRESS. TELE READING SR. IV ACCESS ON RIGHT HAND #20G INTACT. WRAPPED IN KERLIX TO PREVENT PT FROM PULLING IT OUT. SAFETY MEASURES KEPT IN PLACE. FALL PRECAUTIONS IN PLACE, ISOLATION MAINTAINED. BED IS LOCKED AND PLACED IN THE LOW POSITION, SIDE RAILS UP X 3, BED ALARM ON. CALL LIGHT IS WITHIN REACH. ALL DUE MEDS GIVEN ORDERED. ALL NURSING NEEDS MET AND RENDERED. WILL ENDORSE TO DAY SHIFT FOR MIYA.
[2020-09-03 07:15] LABS: CREATININE 1.3 mg/dL (0.6-1.3); POTASSIUM 2.9 mmol/L (3.5-5.1)
--- NOTE | 2020-09-03 07:38 | NUR ---
RN Opening Note Received patient in bed, AO x 1 confuse, able to responds all stimuli, does no appears pain or discomfort. Respiratory even and unlabored with oxygen at 4LPM, no distress or SOB observed. Skin is warm to touch keep clean/dry, intact IV site on right hand g 22. Kept locked bed with elevated HOB for ensure airway and aspiration precaution and lowest position for safety. Call light within reach, will continue to monitor.
[2020-09-03 08:00] VITALS: BP 151/98
[2020-09-03] MEDS: DUTASTERIDE (0.5 MG) 0.5 MG CAPSULE PO SCH (08:46)
[2020-09-03] MEDS: SOTALOL HCL 80 MG TABLET PO SCH (08:46)
[2020-09-03] MEDS: ATORVASTATIN 10 MG TABLET PO SCH (08:47)
[2020-09-03] MEDS: VALSARTAN 80 MG TABLET PO SCH (08:47)
[2020-09-03] MEDS: DEXAMETHASONE SOD PHOSPHATE 10 MG/ML VIAL IV SCH (08:47)
[2020-09-03] MEDS: DULOXETINE HCL 20 MG CAPSULE.DR PO SCH (08:47)
[2020-09-03] MEDS: hydrALAZINE HCL 50 MG TABLET PO SCH ×3 (08:48→17:19)
[2020-09-03] MEDS: AMLODIPINE BESYLATE 5 MG TABLET PO SCH (08:48)
[2020-09-03] MEDS: ASPIRIN EC 81 MG TABLET.DR PO SCH (08:48)
[2020-09-03] MEDS: NITROGLYCERIN 30 GM TUBE TP SCH ×2 (08:49→21:00)
[2020-09-03] MEDS: APIXABAN 5 MG TABLET PO SCH ×2 (08:54→17:21)
[2020-09-03] MEDS: POTASSIUM CHLORIDE 20 MEQ TAB.PRT.SR PO SCH ×5 (10:13→14:11)
[2020-09-03] MEDS: *INSULIN REGULAR(HUMULIN R)HUM 100 UNIT/ML VIAL SQ PRN (17:20)
--- NOTE | 2020-09-03 18:05 | NUR ---
Daughter wants to talk to Doctor and informed MD/Zelda to call DTR.
--- NOTE | 2020-09-03 18:10 | NUR ---
RN Closing note Patient in bed resting confuse and noticed attempted out of bed. DTR wants talk to MD and informed MD. Pt does no appears discomfort, skin is warm to touch keep clean/dry. Respiratory even and unlabored on room air O2sat 93-92%, no sob or distress observed. Kept locked bed and elevated HOB for ensure airway and aspiration precaution, and lowest position for safety, bed alarm is on at all the times, call light within reach, will endorse public relations coordinator.
--- NOTE | 2020-09-03 18:33 | NUR ---
Patient refused oral care, noticed restlessness and taking off monitor and storage bin tender, wound dressing, and arm cover for IV site.
--- NOTE | 2020-09-03 19:35 | NUR ---
BENCH CHEMIST OPEN NOTES PT IS LAYING IN BED. A/O X1, CONFUSED. TELE MONITOR READING SR, 77. IV IN R HAND #22G IS PATENT AND INTACT. PT DENIES ANY PAIN AT THE MOMENT. BED IS IN LOWEST LOCKED POSITION WITH SIDE RAILS UP X3, SEMI FOWLERS. CALL LIGHT IS WITHIN REACH. WILL CONTINUE TO MONITOR.
[2020-09-03 20:16] VITALS: BP 124/76
[2020-09-04 01:19] VITALS: BP_SYST 124; BP_SYST 136; BP_DIAS 76; BP_DIAS 82
[2020-09-04 01:29] VITALS: BP 136/82
--- NOTE | 2020-09-04 03:59 | NUR ---
STOGY ROLLER NOTES PT IS VERY CONFUSED, TRIES TO GET OUT OF BED AND IS CONSTANTLY REMOVING HIS NASAL CANULA. ASKED MD FOR AN ORDER ON RESTRAINTS + ATIVAN. PER MD RESTRAINTS MAY MAKE HIM MORE CONFUSED/ AGITATED THEREFORE SHE ORDERED ATIVAN 0.5 MG Q6 PRN. ORDER NOTED AND CARRIED OUT.
[2020-09-04] MEDS ORDERED: LORAZEPAM INJ 2 MG/ML VIAL IV PRN (04:00)
[2020-09-04 05:22] VITALS: BP 134/90
--- NOTE | 2020-09-04 06:19 | NUR ---
BUDGET ASSISTANT CLOSE NOTES PT IS LAYING IN BED. A/O X1, CONFUSED. STABLE ON RA, NO SOB/ ACUTE RESPIRATORY DISTRESS NOTED. TELE MONITOR READING SR WITH PAC, 77. IV IN R HAND #22G IS PATENT AND INTACT. ALL ACCUCHECKS DONE. PT DENIES ANY PAIN AT THE MOMENT. BED IS IN LOWEST LOCKED POSITION WITH SIDE RAILS UP X3, SEMI FOWLERS. CALL LIGHT IS WITHIN REACH. WILL ENDORSE TO AM NURSE.
--- NOTE | 2020-09-04 06:35 | NUR ---
HOTHOUSE WORKER NOTES CONTACTED MD AND REQUESTED AN ORDER FOR RESTRAINTS. PT IS VERY CONFUSED, ANXIOUS, KEEPS PULLING OFF HIS TELE BOX WIRES AND IS CONSTANTLY TRYING TO CLIMB OUT OF BED(ALREADY ADMINISTERED ATIVAN PRN). PER MD, RESTRAINTS ARE OK UNTIL 0700, PT NEEDS SITTER. ORDER NOTED AND CARRIED OUT.
[2020-09-04 07:11] LABS: BASOPHILS % (AUTO) 0.1 % (0.0-2.0); HEMATOCRIT 38 % (39-51); HEMOGLOBIN 12.2 g/dL (13.5-17.5); LYMPHOCYTES # (AUTO) 1.4 /CMM (0.8-4.8); LYMPHOCYTES % (AUTO) 7.1 % (20.0-44.0); MEAN CORPUSCULAR HGB CONC 33 g/dl (31.0-36.0); MEAN CORPUSCULAR VOLUME 92 fL (80-96); MONOCYTES # (AUTO) 0.6 /CMM (0.1-1.30); MONOCYTES % (AUTO) 2.9 % (2.0-12.0); NEUTROPHILS # (AUTO) 18.1 /CMM (1.8-8.9); NEUTROPHILS % (AUTO) 89.9 % (43.0-81.0); PLATELET COUNT (AUTO) 169 /CMM (150-450); RED BLOOD CELL COUNT(AUTO) 4.09 MIL/uL (4.5-6.0); WHITE BLOOD COUNT (AUTO) 20.1 K/uL (4.3-11.0)
[2020-09-04] MEDS: BLOOD SUGAR DIAGNOSTIC 1 EACH STRIP VI SCH ×4 (07:18→21:59)
--- NOTE | 2020-09-04 07:30 | NUR ---
TELE/RN OPENING NOTE Received patient in bed, A&O x 1, confused and restless. No s/s of any pain/discomfort at this time. Breathing even and non-labored on 4L oxygen via NC, no SOB noted. No cardiac distress noted, on tele monitor reading SR 77. IV access on R hand #22g, patent and intact, and flushing well. Bilateral soft restraints in place, circulation and sensation on both upper extremities intact. Will continue to monitor behavior since patient keeps on getting out of bed and trying to pull out leads and IV, Bibi SHELL SORTER aware. Sensation from all other peripheral extremities intact. Bed locked to its lowest position, side rails x 2 up, call light in hand. Will continue with current medical management.
[2020-09-04 07:37] LABS: ALANINE AMINOTRANSFERASE 57 U/L (12-78); ALBUMIN 2.1 g/dL (3.4-5.0); ALKALINE PHOSPHATASE 100 U/L (46-116); ASPARTATE AMINOTRANSFERASE 68 U/L (15-37); BILIRUBIN,TOTAL 1.1 mg/dL (0.2-1.0); CALCIUM, SERUM 8.4 mg/dL (8.5-10.1); CARBON DIOXIDE 25 mmol/L (21-32); CHLORIDE 117 mmol/L (98-107); CREATININE 1.5 mg/dL (0.6-1.3); GLUCOSE 114 mg/dL (74-106); MAGNESIUM 2.6 mg/dL (1.8-2.4); PHOSPHORUS 3.5 mg/dL (2.5-4.9); POTASSIUM 3.5 mmol/L (3.5-5.1); SODIUM SERUM 153 mmol/L (136-145); TOTAL PROTEIN, SERUM 5.5 g/dL (6.4-8.2); UREA NITROGEN, BLOOD 56 mg/dL (7-18)
[2020-09-04 08:00] VITALS: BP 142/76
[2020-09-04 08:39] LABS: LYMPHOCYTES % (MANUAL) 4 % (16-48); MONOCYTES % (MANUAL) 1 % (0-11.0); NEUTROPHILS % (MANUAL) 95 (42-76)
[2020-09-04] MEDS ORDERED: IV 1/2NS 1000 ML 1,000 ML IV PRN (09:00)
[2020-09-04] MEDS: DUTASTERIDE (0.5 MG) 0.5 MG CAPSULE PO SCH (09:01)
[2020-09-04] MEDS: NITROGLYCERIN 30 GM TUBE TP SCH ×2 (09:01→21:11)
[2020-09-04] MEDS: DEXAMETHASONE SOD PHOSPHATE 10 MG/ML VIAL IV SCH (09:01)
[2020-09-04] MEDS: ASPIRIN EC 81 MG TABLET.DR PO SCH (09:02)
[2020-09-04] MEDS: SOTALOL HCL 80 MG TABLET PO SCH (09:02)
[2020-09-04] MEDS: ATORVASTATIN 10 MG TABLET PO SCH (09:02)
[2020-09-04] MEDS: DULOXETINE HCL 20 MG CAPSULE.DR PO SCH (09:02)
[2020-09-04] MEDS: hydrALAZINE HCL 50 MG TABLET PO SCH ×3 (09:03→17:14)
[2020-09-04] MEDS: VALSARTAN 80 MG TABLET PO SCH (09:03)
[2020-09-04] MEDS: AMLODIPINE BESYLATE 5 MG TABLET PO SCH (09:03)
[2020-09-04] MEDS: APIXABAN 5 MG TABLET PO SCH ×2 (09:05→17:16)
[2020-09-04] MEDS: POTASSIUM CHLORIDE 20 MEQ TAB.PRT.SR PO SCH ×3 (09:06→11:56)
[2020-09-04] MEDS: INSULIN REGULAR, HUMAN 100 UNIT/ML 3 ML VIAL SQ PRN ×2 (12:37→17:15)
[2020-09-04 16:00] VITALS: BP 128/74
[2020-09-04] MEDS ORDERED: QUETIAPINE FUMARATE 25 MG TABLET PO PRN (19:30)
--- NOTE | 2020-09-04 19:32 | NUR ---
TELE/RN CLOSING NOTE Patient in bed, A&O x 1, remains confused and restless. All needs are met and attended to. No s/s of any pain/discomfort at this time. Breathing even and non-labored on 3L oxygen via NC, no SOB noted. No cardiac distress noted, on tele monitor reading SR 75. IV access on R hand #22g, patent and intact, and flushing well. Bilateral soft restraints in place, circulation and sensation on both upper extremities remain intact. Fall precautions maintained. Will endorse to slot shift supervisor nurse.
--- NOTE | 2020-09-04 19:59 | NUR ---
MANAGER CLUB NOTES PATIENT IN BED, AWAKE, ALERT AND ORIENTED X 1. CONFUSED. BREATHING EVEN AND UNLABORED ON 4L NC. SHOWS NO SIGNS OF ACUTE RESPIRATORY DISTRESS. NO ACUTE PAIN. IV ON R HAND 22G ITS CLEAN DRY AND INTACT. SHOWS NO SIGNS OF INFILTRATION, NO REDNESS. SAFETY PRECAUTIONS IN PLACE. BED IN LOWEST POSITION, LOCKED, AND CALL LIGHT KEPT WITHIN REACH. WILL CONTINUE TO MONITOR.
[2020-09-04 20:00] VITALS: BP 131/68
[2020-09-04] MEDS: *INSULIN REGULAR(HUMULIN R)HUM 100 UNIT/ML VIAL SQ PRN (21:52)
[2020-09-05] VITALS (7 sets, daily range): BP systolic 95–123; BP diastolic 51–83
--- NOTE | 2020-09-05 05:20 | NUR ---
PERSONNEL PLACEMENT SPECIALIST NOTES PT APPEARED TO HAVE NEW [place] NOT PREVIOUSLY DOCUMENTED. ON RIGHT MID BACK TOWARDS ABDOMEN. TOOK PICTURE AND ADDED TO DOCUMENTATION. WILL CONTINUE TO MONITOR.
[2020-09-05 06:11] LABS: BASOPHILS % (AUTO) 0.1 % (0.0-2.0); HEMATOCRIT 33 % (39-51); HEMOGLOBIN 10.5 g/dL (13.5-17.5); LYMPHOCYTES # (AUTO) 1.6 /CMM (0.8-4.8); LYMPHOCYTES % (AUTO) 7.7 % (20.0-44.0); MEAN CORPUSCULAR HGB CONC 32 g/dl (31.0-36.0); MEAN CORPUSCULAR VOLUME 95 fL (80-96); MONOCYTES # (AUTO) 0.5 /CMM (0.1-1.30); MONOCYTES % (AUTO) 2.7 % (2.0-12.0); NEUTROPHILS # (AUTO) 18.2 /CMM (1.8-8.9); NEUTROPHILS % (AUTO) 89.5 % (43.0-81.0); PLATELET COUNT (AUTO) 152 /CMM (150-450); RED BLOOD CELL COUNT(AUTO) 3.47 MIL/uL (4.5-6.0); WHITE BLOOD COUNT (AUTO) 20.3 K/uL (4.3-11.0)
--- NOTE | 2020-09-05 06:44 | NUR ---
VENUE ATTENDANT NOTES PATIENT IN BED, ASLEEP, ALERT AND ORIENTED X 1. CONFUSED. BREATHING EVEN AND UNLABORED ON 2L NC. SHOWS NO SIGNS OF ACUTE RESPIRATORY DISTRESS. NO ACUTE PAIN. IV ON R HAND 22G ITS CLEAN DRY AND INTACT. SHOWS NO SIGNS OF INFILTRATION, NO REDNESS. ALL DUE MEDICATIONS GIVEN. SAFETY PRECAUTIONS IN PLACE. BED IN LOWEST POSITION, LOCKED, AND CALL LIGHT KEPT WITHIN REACH. WILL ENDORSE TO ONCOMING NURSE.
[2020-09-05] MEDS: BLOOD SUGAR DIAGNOSTIC 1 EACH STRIP VI SCH ×4 (06:55→21:28)
[2020-09-05] MEDS: INSULIN REGULAR, HUMAN 100 UNIT/ML 3 ML VIAL SQ PRN ×4 (06:56→21:52)
[2020-09-05 06:59] LABS: CALCIUM, SERUM 8.1 mg/dL (8.5-10.1); CARBON DIOXIDE 18 mmol/L (21-32); CHLORIDE 121 mmol/L (98-107); CREATININE 1.8 mg/dL (0.6-1.3); GLUCOSE 218 mg/dL (74-106); MAGNESIUM 2.8 mg/dL (1.8-2.4); PHOSPHORUS 4.1 mg/dL (2.5-4.9); POTASSIUM 4.3 mmol/L (3.5-5.1); SODIUM SERUM 154 mmol/L (136-145)
[2020-09-05 07:20] LABS: UREA NITROGEN, BLOOD 81 mg/dL (7-18)
--- NOTE | 2020-09-05 08:00 | NUR ---
RN OPENING NOTE Patient is resting in bed, A/O x1, confused, moaning, saturating 94% on 2L NC. Bilateral soft wrist restraints on place, circulation checked, 2 finger space in between, patient turned and repositioned, skin closely monitored. IV line in the right wrist #22g is clean and intact flushing well. Bed is in lowest position, side rails x3 in upright position, call light is within reach, fall safety and aspiration precautions enforced. Will continue with plan of care.
[2020-09-05] MEDS: DEXAMETHASONE SOD PHOSPHATE 10 MG/ML VIAL IV SCH (08:49)
[2020-09-05] MEDS: hydrALAZINE HCL 50 MG TABLET PO SCH ×3 (08:59→16:31)
[2020-09-05] MEDS: NITROGLYCERIN 30 GM TUBE TP SCH ×2 (09:00→21:25)
[2020-09-05] MEDS: DUTASTERIDE (0.5 MG) 0.5 MG CAPSULE PO SCH (09:00)
[2020-09-05] MEDS: DULOXETINE HCL 20 MG CAPSULE.DR PO SCH (09:00)
[2020-09-05] MEDS: AMLODIPINE BESYLATE 5 MG TABLET PO SCH (09:00)
[2020-09-05] MEDS: APIXABAN 2.5 MG TABLET PO SCH ×2 (09:00→16:31)
[2020-09-05] MEDS: ASPIRIN EC 81 MG TABLET.DR PO SCH (09:00)
[2020-09-05] MEDS: ATORVASTATIN 10 MG TABLET PO SCH (09:00)
[2020-09-05] MEDS: SOTALOL HCL 80 MG TABLET PO SCH (09:00)
--- NOTE | 2020-09-05 09:06 | NUR ---
RN NOTE BP meds held this AM. Patient is not alert enough to take medication at this time. Patient not able to open eyes or respond to questions, only able to moan. Notified MD about change in LOC.
[2020-09-05] MEDS ORDERED: IV D5/0.45 NACL 1,000 ML IV PRN (09:30)
--- NOTE | 2020-09-05 09:30 | NUR ---
RN NOTE Straight cath completed and urine specimen sent to lab.
[2020-09-05] MEDS: PIPERACILLIN /TAZOBACTAM 3.375 G in IV D5W 100 ML IV SCH ×2 (10:51→17:57)
[2020-09-05 11:33] LABS: BILIRUBIN,URINE SMALL (NEGATIVE); BLOOD, URINE MODERATE Ery/uL (NEGATIVE); COLOR,URINE YELLOW (YELLOW); LEUKOCYTE ESTERASE ,URINE NEGATIVE (NEGATIVE); NITRITE, URINE NEGATIVE (NEGATIVE); PH,URINE 5.5 (5.0-8.0); PROTEIN,URINE NEGATIVE (NEGATIVE); UGLUCOSE NEGATIVE (NEGATIVE)
[2020-09-05 11:39] LABS: BACTERIA,URINE None seen /HPF (None Seen); RBC,URINE 21-50 /HPF (0-2); SQUAMOUS EPITHELIAL CELL,UR Few /HPF (None Seen); WBC,URINE 0-2 /HPF (0-3)
--- NOTE | 2020-09-05 11:43 | NUR ---
RN NOTE Insulin held at this time, patient is not alert enough to eat lunch.
--- NOTE | 2020-09-05 13:47 | NUR ---
RN NOTE Reported to POST GRADUATE INTERN low manual BP of 95/55 HR58. Received T.O. order for 1/2 NS 1 liter BOLUS one time. Orders repeated back and carried out.
[2020-09-05] MEDS ORDERED: IV 1/2NS 1000 ML 1,000 ML IV ONE (14:00)
--- NOTE | 2020-09-05 15:00 | NUR ---
RN NOTE BP improved 118/52 HR 79. Patient is waking up, opens eyes, asking for water. Will continue with plan of care.
[2020-09-05 17:21] LABS: PROSTATE SPECIFIC ANTIGEN SCR 17.27 ng/mL (0.00-4.00)
--- NOTE | 2020-09-05 18:28 | NUR ---
RN NOTE BS 166. Held insulin d/t patient refusing to eat at this time. Patient was only able to have a few bites of dinner.
--- NOTE | 2020-09-05 19:22 | NUR ---
RN CLOSING NOTE Patient is resting in bed, A/O x1, confused, moaning, saturating 94% on 2L NC. Bilateral soft wrist restraints in place, circulation checked, 2 finger space in between, patient turned and repositioned, skin closely monitored. IV line in the RAC #22g is clean and intact flushing well. All patient needs met, all due medications given, patient kept clean and dry throughout shift. Bed is in lowest position, side rails x3 in upright position, call light is within reach, fall safety and aspiration precautions enforced. Will endorse to lieutenant shift supervisor for MIYA.
--- NOTE | 2020-09-05 20:18 | NUR ---
TELE/RN OPENING NOTE Patient awake in bed, A/O x1, confused, moaning, bed bound. Breathing even, mild labor, on NC 2LPM, O2sat 94%. Tele monitor reading sinus pat. No JVD. Tongue midline, no tracheal deviation. Mucous membranes and lips slightly pale. Skin warm, pink, dry. Generalized scabs and bruising noted. Skin tears noted on bilateral arms and legs, dressing clean and intact. Large purple bruise noted on posterior right rib. Soft wrist restraints in place. Skin is warm, radial pulse 2+, symmetrical, mild bruising noted on left wrist, able to fit two fingers between restraint and skin. IV site RAC 22g running D51/2NS @ 75 ml/hr. No signs of redness or infiltration. Bed in low position, wheels locked, side rails up x2, call light within reach.
[2020-09-06] VITALS: BP 104/53
[2020-09-06] MEDS: PIPERACILLIN /TAZOBACTAM 3.375 G in IV D5W 100 ML IV SCH ×3 (01:15→18:49)
[2020-09-06 04:00] VITALS: BP 112/58
[2020-09-06] MEDS: INSULIN REGULAR, HUMAN 100 UNIT/ML 3 ML VIAL SQ PRN ×2 (06:31→13:18)
[2020-09-06] MEDS: BLOOD SUGAR DIAGNOSTIC 1 EACH STRIP VI SCH ×4 (06:32→23:10)
--- NOTE | 2020-09-06 06:44 | NUR ---
TELE/RN CLOSING NOTE Patient awake in bed, A/O x1, confused, moaning, bed bound. Breathing even, mild labor, on NC 2LPM, O2sat 94%. Tele monitor reading sinus pat. Skin warm, pink, dry. Generalized scabs and bruising noted. Skin tears noted on bilateral arms and legs, dressing changed clean and intact. Large purple bruise noted on posterior right rib. Soft wrist restraints in place. Skin is warm, radial pulse 2+, symmetrical, mild bruising noted on left wrist, able to fit two fingers between restraint and skin. IV site RAC 22g running D51/2NS @ 75 ml/hr. No signs of redness or infiltration. Bed in low position, wheels locked, side rails up x2, call light within reach.
[2020-09-06 08:00] VITALS: BP_SYST 128; BP_SYST 146; BP_DIAS 50; BP_DIAS 71
--- NOTE | 2020-09-06 08:00 | NUR ---
TELE/RN OPENING NOTE Patient awake in bed, A/O x1, confused, moaning, bed bound. Breathing even, non- labored, on O2 NC 2LPM, O2sat 98%. Tele monitor reading sinus rhythm. No JVD. Tongue midline, no tracheal deviation. Mucous membranes and lips slightly pale. Skin warm, pink, dry. Generalized scabs and bruising noted. Skin tears noted on bilateral arms and legs, dressing clean and intact. Large purple bruise noted on posterior right rib. Soft wrist restraints in place. Skin is warm, radial pulse 2+, symmetrical, mild bruising noted on left wrist, able to fit two fingers between restraint and skin. IV site RAC 22g running D51/2NS @ 100 ml/hr. No signs of redness or infiltration. Bed in low position, wheels locked, side rails up x2, call light within reach.
--- NOTE | 2020-09-06 08:10 | NUR ---
PT IS AWAKE BUT LETHARGIC AND CONFUSED DOESN'T FOLLOW INSTRUCTIONS.REFUSED BREAKFAST AND EVEN OFFERED SOME FOOD OPTIONS, PT INSISTS TO REFUSE.WILL TRY LATER.
--- NOTE | 2020-09-06 08:10 | NUR ---
PT IS SLEEPING COMFORTABLY BUT AROUSABLE,PT REFUSED TO EAT BREAKFAST.WILL TRY LATER.
[2020-09-06 08:54] LABS: HEMATOCRIT 31 % (39-51); HEMOGLOBIN 9.8 g/dL (13.5-17.5); LYMPHOCYTES # (AUTO) 1.8 /CMM (0.8-4.8); LYMPHOCYTES % (AUTO) 8.1 % (20.0-44.0); MEAN CORPUSCULAR HGB CONC 32 g/dl (31.0-36.0); MEAN CORPUSCULAR VOLUME 94 fL (80-96); MONOCYTES # (AUTO) 0.5 /CMM (0.1-1.30); MONOCYTES % (AUTO) 2.3 % (2.0-12.0); NEUTROPHILS # (AUTO) 19.5 /CMM (1.8-8.9); NEUTROPHILS % (AUTO) 89.6 % (43.0-81.0); PLATELET COUNT (AUTO) 131 /CMM (150-450); RED BLOOD CELL COUNT(AUTO) 3.25 MIL/uL (4.5-6.0); WHITE BLOOD COUNT (AUTO) 21.8 K/uL (4.3-11.0)
--- NOTE | 2020-09-06 09:30 | NUR ---
PT WAS SEEN BY SPEECH THERAPIST FOR SWALLOW EVAL AND PT NEEDS THICKENED LIQUIDS, PT SWALLOWS WITH DELAYED RESPONSE.
[2020-09-06] MEDS: SOTALOL HCL 80 MG TABLET PO SCH (09:33)
[2020-09-06] MEDS: DULOXETINE HCL 20 MG CAPSULE.DR PO SCH (09:33)
[2020-09-06] MEDS: ASPIRIN EC 81 MG TABLET.DR PO SCH (09:33)
[2020-09-06] MEDS: AMLODIPINE BESYLATE 5 MG TABLET PO SCH (09:33)
[2020-09-06] MEDS: APIXABAN 2.5 MG TABLET PO SCH ×2 (09:35→18:49)
[2020-09-06] MEDS: DEXAMETHASONE SOD PHOSPHATE 10 MG/ML VIAL IV SCH (09:35)
[2020-09-06] MEDS: ATORVASTATIN 10 MG TABLET PO SCH (09:35)
[2020-09-06] MEDS: DUTASTERIDE (0.5 MG) 0.5 MG CAPSULE PO SCH (09:39)
[2020-09-06] MEDS: NITROGLYCERIN 30 GM TUBE TP SCH ×2 (09:40→21:50)
[2020-09-06 09:49] LABS: CALCIUM, SERUM 7.7 mg/dL (8.5-10.1); CARBON DIOXIDE 22 mmol/L (21-32); CHLORIDE 121 mmol/L (98-107); CREATININE 2.2 mg/dL (0.6-1.3); GLUCOSE 224 mg/dL (74-106); MAGNESIUM 2.9 mg/dL (1.8-2.4); PHOSPHORUS 4.9 mg/dL (2.5-4.9); POTASSIUM 3.9 mmol/L (3.5-5.1); SODIUM SERUM 155 mmol/L (136-145)
[2020-09-06 09:51] LABS: UREA NITROGEN, BLOOD 96 mg/dL (7-18)
[2020-09-06 16:00] VITALS: BP 137/56
--- NOTE | 2020-09-06 16:00 | NUR ---
JOSE RAMON GRANT NP CALLED AND ORDERED STAT CTA HEAD/NECK WITH CONTRAST.NOTIFIED RADIOLOGY,SPOKE TO ASHLEY AND THEY STATED THAT PT'S BUN IS HIGH 96 AND CREA IS 2.2 WHICH IS CONTRAINDICATED FOR CONTRAST.NOTIFIED MARILU ALBRIGHT WHO STATED THAT PT IS HAVING ACUTE STROKE WHEREIN BENEFITS OUTWEIGHS RISKS AND WILL NOTIFY DR MUSA. ASHLEY OF RADIOLOGY ALSO STATED THAT THE DOCTOR HIMSELF NEEDS TO SIGN THE CONSENT.NOTIFIED JOSE RAMON WHO STATED THAT DR MUSA WILL SIGN THE CONSENT.
--- NOTE | 2020-09-06 16:20 | NUR ---
STROKE ASSESSMENT DONE. PT IS CONFUSED AND IS HARD OF HEARING. QUESTIONS HAS TO BE REPEATED 2X . DOESN'T FOLLOW VERBAL CUES. ON AND OFF COHERENT RESPONSES.DURING ASSESSMENT, NOTED TO HAVE LEFT ARM WEAKNESS BUT ABLE TO MOVE RT ARM.UNABLE TO MAKE A FIST ON RICA HANDS.UNABLE TO CLEARLY ASSESS PT DUE TO CONFUSION AND DOES NOT FOLLOW VERBAL CUING. DURING AM CARE,PT WAS ABLE TO MOVE BLE AND WITH STRONG RT ARM BUT DURING STROKE ASSESSMENT ,PT SLIGHTLY MOVED HIS RT FOOT WHEN THE TOES WERE PINCHED BUT NOT THE LEFT FOOT.BLOOD SUGAR CHECK DONE 161 RESULT.
--- NOTE | 2020-09-06 16:35 | NUR ---
CALLED PT'S DAUGHTER,FITO DENISE, UPDATED ON PT'S CONDITION AND RELAYED CT HEAD WO CONTRAST RESULT.OBTAINED CONSENT FOR CTA HEAD/NECK WITH CONTRAST WITH CO-RN,ADRIANA WITNESS. DR MUSA CAME TO SIGN THE CONSENT WELL. DR MUSA STATED FOR THE STAT CTA HEAD/NECK W/ CONTRAST (CTA BRAIN AND CAROTID) PROCEDURE,WE NEED TO IMMEDIATELY CALL FOR CODE STROKE. DIALED 555 AND NOTIFIED RN LAND ACQUISITION ANALYST,GRACE AND DIRECTOR OF RECRUITING,MARIETTA.
--- NOTE | 2020-09-06 16:38 | NUR ---
CODE STROKE WAS ACTIVATED BY DR MUSA TO HAVE A STAT CT HEAD/NECK DONE.
[2020-09-06] MEDS ORDERED: IOHEXOL-350 100 ML VIAL IV ONE (16:40)
[2020-09-06] MEDS ORDERED: IV NS 0.9% 250 ML IV ONE (16:40)
[2020-09-06] MEDS ORDERED: CT SWABBABLE VALVE TRANS SET 1 EA INFUS.SET MC ONE (16:40)
--- NOTE | 2020-09-06 16:40 | NUR ---
ACCOMPANIED PT TO CAT SCAN FOR THE PROCEDURE
--- NOTE | 2020-09-06 16:45 | NUR ---
DICE SPOTTER ARRIVED AND DEBBIE LAB TEST IN CAT SCAN UNIT
[2020-09-06 17:14] LABS: BASOPHILS # (AUTO) 0.1 /CMM (0.0-0.2); BASOPHILS % (AUTO) 0.3 % (0.0-2.0); EOSINOPHILS % (AUTO) 0.1 % (0.0-6.0); HEMATOCRIT 28 % (39-51); LYMPHOCYTES # (AUTO) 1.3 /CMM (0.8-4.8); LYMPHOCYTES % (AUTO) 6.2 % (20.0-44.0); MEAN CORPUSCULAR HGB CONC 32 g/dl (31.0-36.0); MEAN CORPUSCULAR VOLUME 94 fL (80-96); MONOCYTES # (AUTO) 0.4 /CMM (0.1-1.30); MONOCYTES % (AUTO) 1.9 % (2.0-12.0); NEUTROPHILS # (AUTO) 18.8 /CMM (1.8-8.9); NEUTROPHILS % (AUTO) 91.5 % (43.0-81.0); PLATELET COUNT (AUTO) 133 /CMM (150-450); RED BLOOD CELL COUNT(AUTO) 3.01 MIL/uL (4.5-6.0); WHITE BLOOD COUNT (AUTO) 20.5 K/uL (4.3-11.0)
--- NOTE | 2020-09-06 17:25 | NUR ---
PT RETURNED FROM CT AND BROUGHT BACK TO HIS ROOM.
[2020-09-06 17:36] LABS: CALCIUM, SERUM 7.5 mg/dL (8.5-10.1); CARBON DIOXIDE 21 mmol/L (21-32); CHLORIDE 124 mmol/L (98-107); CREATININE 2.2 mg/dL (0.6-1.3); GLUCOSE 158 mg/dL (74-106); POTASSIUM 3.6 mmol/L (3.5-5.1)
--- NOTE | 2020-09-06 17:40 | NUR ---
TELE NEUROLOGY ACTIVATED AND STROKE ASSESSMENT WAS DONE.PT WAS ABLE TO SAY HIS AGE CORRECTLY. UNABLE TO PROPERLY ASSESS PT DUE TO CONFUSION AND IS HARD OF HEARING. 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 VERBAL INSTRUCTIONS HAS TO BE REPEATED 2X.PT DOESN'T FOLLOW VERBAL CUEING EITHER. TELE NEUROLOGIST STATED THAT THE PT IS NOT A CANDIDATE FOR STROKE SINCE PT'S LAST CHANGE OF WELL KNOWN WAS MORE THAN 24 HRS.NOTIFIED MARILU ALBRIGHT, SUPERVISOR CLAIMSMARIETTA AND HOUSE WORKER GENERAL RNGRACE.
--- NOTE | 2020-09-06 17:50 | NUR ---
STAT EKG DONE
--- NOTE | 2020-09-06 18:00 | NUR ---
RESPONDED TO CODE STROKE CALLED TO RM 204. UPON ARRIVAL -PATIENT WAY OUT TO CT SCAN . CODE STROKE CALLED BY DR. MUSA. TELE NEUROLOGY ALREADY ACTIVATED BY INTERNET WEBMASTER. PHARMACIST/ NURSING SUP ON STANDBY. PATIENT CAME BACK FROM HEAD CTA APPROXIMATELY POST 30 MINUTES. PER PRIMARY RN- LABS DRAWN IN RADIOLOGY. NEURO ASSESSMENT DONE WITH TELE NEUROLOGIST AT BEDSIDE. PER MD- PATIENT IS NOT A CANDIDATE FOR TPA. PER MD- HAD DISCUSSED RECOMMENDATIONS TO ATTENDING MD. CONTACTED MADELEINE BENITEZ RE: PATIENT DISPOSITION. PER PRIMARY MD, CODE STROKE WAS PROBABLY ACTIVATED FOR STAT HEAD CTA BY MD. NOT A CANDIDATE SINCE PATIENT LAST WELL KNOWN WAS OVER 24 HRS. KEEP PATIENT ON TELE 2. NEURO CONSULT DONE BY ATTENDING. TO CONTINUE STROKE ASSESSMENT PER PROTOCOL.
[2020-09-06 18:06] LABS: SODIUM SERUM 157 mmol/L (136-145)
[2020-09-06 18:07] LABS: UREA NITROGEN, BLOOD 96 mg/dL (7-18)
--- NOTE | 2020-09-06 18:30 | NUR ---
PT WAS SEEN BY MARILU MARQUEZ OF ID WITH ORDER OF JON CATHETER INSERTION EVEN IF MARILU MARQUEZ WAS MADE AWARE THAT THE PT VOIDED 3X DURING THE SHIFT. INSERTED JON CATHETER ORDERED. PT IS COMFORTABLY LYING IN BED AND PULLED OUT HIS JON CATHETER.PT WAS ABLE TO DRINK 2 CUPS OF THICKENED WATER BUT PT REFUSED TO EAT DINNER INSPITE OF EXPLAINING THE RISKS AND BENEFITS AND GIVING OTHER NOURISHMENT OPTIONS,PT INSISTS TO REFUSE DINNER. PT DENIES ANY PAIN OR DISTRESS. ATTEMPTED 3X TO INSERT A NEW IV HEPLOCK BUT PT IS HARDSTICK.NOTIFIED CAILIN STINSON AND OBTAINED ORDER FOR MIDLINE INSERTION. NOTIFIED STEREO COMPILER,GRACE WHO CALLED THE MIDLINE NURSE. CALLED PT'S DAUGHTER, FITO AND UPDATED HER ON PT'S CONDITION. ENDORSED PT'S CARE TO MECHANICAL REPAIR WORKER NURSE. Addendum: 09/06/20 at 2222 by DOMINIQUE BERNARD RN PT PULLED OUT HIS IV H/L ON HIS LT AC AND NOT HIS JON CATHETER
[2020-09-06] MEDS: CLOPIDOGREL BISULFATE 75 MG TABLET PO SCH (18:50)
--- NOTE | 2020-09-06 19:50 | NUR ---
MOLDING PLASTERER NOTES RECEIVED PATIENT ASLEEP, RESPONSIVE TO VERBAL STIMULI,SLUGGISH AT THIS TIME, NO SIGNS OF ACUTE RESPIRATORY OR CARDIAC DISTRESS NOTED AT THIS TIME, JON CATHETER INTACT PATENT NOTED SMALL AMOUNT OF BLEEDING AROUND THE URETHRA, DRAINING YELLOW URINE OUTPUT. NO PERIPHERAL IV ACCESS AT THIS TIME, AWAITING FOR PICC NURSE. SAFETY MEASURES IN PLACE, ASPIRATION PRECAUTION EMPHASIZED, ALL NEEDS ANTICIPATED, TELE MONITOR READS SINUS 60s -80s AT THIS TIME. WILL CONTINUE TO MONITOR ACCORDINGLY.
[2020-09-06 20:00] VITALS: BP 134/67
[2020-09-07] VITALS (13 sets, daily range): BP systolic 84–142; BP diastolic 26–57
[2020-09-07] MEDS: IV D5W 1,000 ML IV PRN ×2 (00:29→22:00)
[2020-09-07] MEDS: PIPERACILLIN /TAZOBACTAM 3.375 G in IV D5W 100 ML IV SCH ×3 (01:04→17:32)
[2020-09-07 01:08] LABS: ALANINE AMINOTRANSFERASE 40 U/L (12-78); ALBUMIN 1.7 g/dL (3.4-5.0); ALKALINE PHOSPHATASE 94 U/L (46-116); ASPARTATE AMINOTRANSFERASE 46 U/L (15-37); B-TYPE NATRIURETIC PEPTIDE 991 PG/ML (0-125); BILIRUBIN,TOTAL 0.7 mg/dL (0.2-1.0); CALCIUM, SERUM 7.8 mg/dL (8.5-10.1); CARBON DIOXIDE 25 mmol/L (21-32); CHLORIDE 123 mmol/L (98-107); CREATININE 2.1 mg/dL (0.6-1.3); GLUCOSE 136 mg/dL (74-106); POTASSIUM 3.7 mmol/L (3.5-5.1); TOTAL PROTEIN, SERUM 4.7 g/dL (6.4-8.2)
[2020-09-07 01:09] LABS: THYROID STIMULATING HORMONE 1.821 uIU/mL (0.358-3.74)
[2020-09-07 01:11] LABS: SODIUM SERUM 157 mmol/L (136-145); UREA NITROGEN, BLOOD 86 mg/dL (7-18)
--- NOTE | 2020-09-07 01:18 | NUR ---
RN NOTES SHANTELL MCCLAIN MADE AWARE REGARDING BUN 86 AND SODIUM 157. NO OTHER ORDERS AT THIS TIME. WILL CONTINUE TO MONITOR PATIENT
--- NOTE | 2020-09-07 06:27 | NUR ---
BOATBUILDER SUPERVISOR NOTES ALL NEEDS ATTENDED AND MET, RESTING COMFORTABLY AT THIS TIME. KEEP CLEAN WARM DRY AND COMFORTABLE. REPOSITIONED FOR COMFORT. MIDLINE ON HIS RIGHT UPPER ARM INTACT AND PATENT. D5W INTACT INFUSING WELL. JON CATHETER INTACT AND PATENT DRAINING TO A YELLOW URINE 500 ML OUTPUT, AT THIS TIME. STILL NOTED WITH SMALL BLEEDING AROUND THE URETHRA. TELE MONITOR READS SINUS RHYTHM 64. ALL NEEDS ANTICIPATED. SAFETY MEASURES IN PLACE, WILL ENDORSE TO AM NURSE FOR CONTINUITY OF CARE.
[2020-09-07] MEDS: BLOOD SUGAR DIAGNOSTIC 1 EACH STRIP VI SCH ×3 (07:28→17:32)
[2020-09-07] MEDS: INSULIN REGULAR, HUMAN 100 UNIT/ML 3 ML VIAL SQ PRN (07:29)
--- NOTE | 2020-09-07 07:38 | NUR ---
RN NOTES INFORMED SHANTELL MCCLAIN NP REGARDING PATIENTS STATUS, HE PULLED OUT HIS JON CATHETER, RE INSERTED A NEW ONE, NOTED WITH BLOODY URINE OUTPUT, REPORT GIVEN TO AM NURSE PER SHANTELL MCCLAIN NP. TO MONITOR SIGNS OF ACTIVE BLEEDING, FLUSH JON CATHETER FOR ANY SIGNS OF BLOODY URINE OUTPUT, GIVE ELIQUIS AND ASPIRIN ROUTINE ORDER. PATIENT SEEN BY DR. MCMAHON. INFORMED AM NURSE FOR CONTINUITY OF CARE.
--- NOTE | 2020-09-07 08:00 | NUR ---
RN Opening Note Received patient in bed, alert and oriented to name confuse, able to responds all stimuli, does no appears pain or discomfort. Respiratory even and unlabored with oxygen at 2LPM, no distress or SOB observed. Skin is warm to touch keep clean/dry, intact midline on right upper arm, patient pulled out dockery cath and caused bleeding reported manager night. Patient is on soft restraint on bilateral wrist and observing closely for safety also neuro check q 4 hours. Kept locked bed with elevated HOB for ensure airway and aspiration precaution and lowest position for safety. Call light within reach, will continue to monitor.
[2020-09-07 08:55] LABS: BASOPHILS % (AUTO) 0.1 % (0.0-2.0); HEMATOCRIT 29 % (39-51); HEMOGLOBIN 8.7 g/dL (13.5-17.5); LYMPHOCYTES # (AUTO) 1.4 /CMM (0.8-4.8); LYMPHOCYTES % (AUTO) 7.6 % (20.0-44.0); MEAN CORPUSCULAR HGB CONC 30 g/dl (31.0-36.0); MEAN CORPUSCULAR VOLUME 102 fL (80-96); MONOCYTES # (AUTO) 0.4 /CMM (0.1-1.30); MONOCYTES % (AUTO) 2.1 % (2.0-12.0); NEUTROPHILS # (AUTO) 17.1 /CMM (1.8-8.9); NEUTROPHILS % (AUTO) 90.2 % (43.0-81.0); PLATELET COUNT (AUTO) 132 /CMM (150-450); RED BLOOD CELL COUNT(AUTO) 2.84 MIL/uL (4.5-6.0)
[2020-09-07] MEDS: AMLODIPINE BESYLATE 5 MG TABLET PO SCH (09:00)
[2020-09-07] MEDS: NITROGLYCERIN 30 GM TUBE TP SCH ×2 (09:00→21:00)
[2020-09-07] MEDS: DULOXETINE HCL 20 MG CAPSULE.DR PO SCH (09:00)
[2020-09-07] MEDS ORDERED: ASPIRIN 325 MG TABLET PO SCH (09:00)
[2020-09-07] MEDS: DUTASTERIDE (0.5 MG) 0.5 MG CAPSULE PO SCH (09:00)
[2020-09-07] MEDS: CLOPIDOGREL BISULFATE 75 MG TABLET PO SCH (09:00)
[2020-09-07] MEDS: SOTALOL HCL 80 MG TABLET PO SCH (09:00)
[2020-09-07] MEDS: ATORVASTATIN 10 MG TABLET PO SCH (09:00)
[2020-09-07 09:14] LABS: CALCIUM, SERUM 7.6 mg/dL (8.5-10.1); CARBON DIOXIDE 19 mmol/L (21-32); CHLORIDE 122 mmol/L (98-107); CREATININE 2.4 mg/dL (0.6-1.3); GLUCOSE 260 mg/dL (74-106); PHOSPHORUS 5.5 mg/dL (2.5-4.9); SODIUM SERUM 154 mmol/L (136-145)
[2020-09-07 09:17] LABS: CHOLESTEROL 77 mg/dL (<200); HDL CHOLESTEROL 28 mg/dL (40-60); LDL 38 mg/dL (0-99); TRIGLYCERIDES 74 mg/dL (30-150)
[2020-09-07 09:21] LABS: UREA NITROGEN, BLOOD 93 mg/dL (7-18)
[2020-09-07] MEDS: APIXABAN 2.5 MG TABLET PO SCH (10:52)
[2020-09-07] MEDS ORDERED: LORAZEPAM INJ 2 MG/ML VIAL IV ONE (14:00)
--- NOTE | 2020-09-07 15:35 | NUR ---
Patient is on Eliquis and noted INR >170.0, MD made aware, will continue to monitor closely.
--- NOTE | 2020-09-07 16:17 | NUR ---
Patient noticed bloody in oral during oral care, MD made aware will continue to monitor. No active bleeding observed.
[2020-09-07 17:47] LABS: BASOPHILS % (AUTO) 0.1 % (0.0-2.0); HEMATOCRIT 35 % (39-51); HEMOGLOBIN 9.3 g/dL (13.5-17.5); LYMPHOCYTES # (AUTO) 2.4 /CMM (0.8-4.8); LYMPHOCYTES % (AUTO) 8.8 % (20.0-44.0); MEAN CORPUSCULAR HGB CONC 27 g/dl (31.0-36.0); MEAN CORPUSCULAR VOLUME 112 fL (80-96); MONOCYTES # (AUTO) 0.7 /CMM (0.1-1.30); MONOCYTES % (AUTO) 2.5 % (2.0-12.0); NEUTROPHILS # (AUTO) 23.7 /CMM (1.8-8.9); NEUTROPHILS % (AUTO) 88.6 % (43.0-81.0); PLATELET COUNT (AUTO) 133 /CMM (150-450); RED BLOOD CELL COUNT(AUTO) 3.11 MIL/uL (4.5-6.0); WHITE BLOOD COUNT (AUTO) 26.8 K/uL (4.3-11.0)
--- NOTE | 2020-09-07 18:00 | NUR ---
Patient noticed decrease bp 86/49-80/41, made vázquez and receive order 1/2 NS bolus and CBC stat. Noted and carry out.
[2020-09-07] MEDS ORDERED: IV 1/2NS 1000 ML 1,000 ML IV ONE ×2 (18:30→19:00)
--- NOTE | 2020-09-07 18:50 | NUR ---
RN Closing note Patient in bed resting, notice confuse and attempted pulling put IV tubing during shift. Still noticed hematuria([place] in color) due to pulled out dockery cath and on bolus irrigation via dockery cath. Skin is warm to touch keep clean/dry. Respiratory even and unlabored on room air O2sat 94%, no sob or distress observed, noted bp decrease and MD made aware, received order 1/2 NS bolus x 1L and running. Kept locked bed and elevated HOB for ensure airway and aspiration precaution, and lowest position for safety, bed alarm is on at all the times, call light within reach, will endorse manager shift.
[2020-09-07 19:21] LABS: LYMPHOCYTES % (MANUAL) 14 % (16-48); NEUTROPHILS % (MANUAL) 86 (42-76)
--- NOTE | 2020-09-07 19:35 | NUR ---
RN NOTES: -WHILE OUTGOING RN GIVING ENDORSEMENT, RECEIVED A CALL FROM DR. MCCLAIN TO TRANSFER PATIENT TO IC. -PATIENT WAS A/1X1 LOOKS CONFUSED AND MOANING SOUND ONLY, WITH NGT ON SIT, STILL AWAITING FOR X-RAY RESULT FOR PATENCY PER ENDORSEMENT, PATIENT ON JON CATH, HE HAS HEMATURIA, IRRIGATION ONGOING, ,STILL REDDISH URINE IS DRAINING.HE JUST RECEIVED 1/2 NS 1 LITER FOR HYPOTENSION, ZOSYN ANTIBIOTIC ONGOING. -NPO, SINUS RHYTHM. -CALLED ICU, INSTRUCTED BY STAFF TO WAIT FOR RN TO CALL BACK AND GET ENDORSEMENT,HE WILLKEPT PATIENT READY FOR TRANSFER TO ICU, BELONGINGS CHECK,ENDORSEMNT GIVEN TO [facility]/RN/ICU
--- NOTE | 2020-09-07 20:18 | NUR ---
RN NOTES: PATIENT TRANSFERRED TO ICU ROOM 355 WITH MEDICATION AND BELONGINGS, LATETST V/S 82/45 AK=92, EMPTIED JON CATH-700CC REDDISH URINE.ENDORSEMENT GIVEN TO ANGEL/NAJMA/ICU.
[2020-09-07 20:29] LABS: BASOPHILS # (AUTO) 0.1 /CMM (0.0-0.2); BASOPHILS % (AUTO) 0.6 % (0.0-2.0); HEMATOCRIT 24 % (39-51); HEMOGLOBIN 7.7 g/dL (13.5-17.5); LYMPHOCYTES # (AUTO) 1.6 /CMM (0.8-4.8); LYMPHOCYTES % (AUTO) 7.7 % (20.0-44.0); MEAN CORPUSCULAR HGB CONC 32 g/dl (31.0-36.0); MEAN CORPUSCULAR VOLUME 94 fL (80-96); MONOCYTES # (AUTO) 0.4 /CMM (0.1-1.30); NEUTROPHILS # (AUTO) 18.7 /CMM (1.8-8.9); NEUTROPHILS % (AUTO) 89.7 % (43.0-81.0); PLATELET COUNT (AUTO) 126 /CMM (150-450); RED BLOOD CELL COUNT(AUTO) 2.53 MIL/uL (4.5-6.0); WHITE BLOOD COUNT (AUTO) 20.9 K/uL (4.3-11.0)
[2020-09-07] MEDS ORDERED: NOREPINEPHRINE 8MG/250ML RTU 250 ML IV ONE (21:20)
[2020-09-07] MEDS: NOREPINEPHRINE 8 MG in IV NS 0.9% 242 ML IV PRN (21:22)
[2020-09-07] MEDS ORDERED: VANCOMYCIN 1.25 GM in IV D5W 250 ML IV ONE (21:30)
[2020-09-07] MEDS ORDERED: VANCOMYCIN 1 GM VIAL ONE (22:21)
[2020-09-08] VITALS (83 sets, daily range): BP systolic 23–171; BP diastolic 18–137
[2020-09-08 00:15] LABS: BASOPHILS # (AUTO) 0.1 /CMM (0.0-0.2); BASOPHILS % (AUTO) 0.3 % (0.0-2.0); HEMATOCRIT 25 % (39-51); HEMOGLOBIN 7.8 g/dL (13.5-17.5); LYMPHOCYTES # (AUTO) 1.9 /CMM (0.8-4.8); LYMPHOCYTES % (AUTO) 8.3 % (20.0-44.0); MEAN CORPUSCULAR HGB CONC 32 g/dl (31.0-36.0); MEAN CORPUSCULAR VOLUME 95 fL (80-96); MONOCYTES # (AUTO) 0.5 /CMM (0.1-1.30); MONOCYTES % (AUTO) 2.2 % (2.0-12.0); NEUTROPHILS # (AUTO) 20.8 /CMM (1.8-8.9); NEUTROPHILS % (AUTO) 89.2 % (43.0-81.0); PLATELET COUNT (AUTO) 136 /CMM (150-450); WHITE BLOOD COUNT (AUTO) 23.3 K/uL (4.3-11.0)
[2020-09-08 00:20] LABS: CALCIUM, SERUM 6.9 mg/dL (8.5-10.1); CARBON DIOXIDE 16 mmol/L (21-32); CHLORIDE 121 mmol/L (98-107); CREATININE 3.2 mg/dL (0.6-1.3); GLUCOSE 225 mg/dL (74-106); POTASSIUM 4.1 mmol/L (3.5-5.1); SODIUM SERUM 155 mmol/L (136-145)
[2020-09-08 00:23] LABS: UREA NITROGEN, BLOOD 104 mg/dL (7-18)
[2020-09-08 00:26] LABS: ALANINE AMINOTRANSFERASE 41 U/L (12-78); ALBUMIN 1.5 g/dL (3.4-5.0); ALKALINE PHOSPHATASE 107 U/L (46-116); ASPARTATE AMINOTRANSFERASE 54 U/L (15-37); BILIRUBIN,TOTAL 0.8 mg/dL (0.2-1.0); TOTAL PROTEIN, SERUM 4.3 g/dL (6.4-8.2)
[2020-09-08] MEDS: *INSULIN REGULAR(HUMULIN R)HUM 100 UNIT/ML VIAL SQ PRN (00:53)
[2020-09-08] MEDS: BLOOD SUGAR DIAGNOSTIC 1 EACH STRIP VI SCH ×4 (00:53→17:15)
[2020-09-08] MEDS: PIPERACILLIN /TAZOBACTAM 3.375 G in IV D5W 100 ML IV SCH ×3 (01:43→18:49)
[2020-09-08] MEDS ORDERED: IV NS 0.9% 1,000 ML IV ONE ×3 (02:10→18:00)
[2020-09-08 03:29] LABS: BILIRUBIN,DIRECT 0.3 mg/dL (0.0-0.2)
[2020-09-08 04:36] LABS: BASOPHILS % (AUTO) 0.1 % (0.0-2.0); HEMATOCRIT 22 % (39-51); HEMOGLOBIN 7.1 g/dL (13.5-17.5); LYMPHOCYTES # (AUTO) 1.7 /CMM (0.8-4.8); LYMPHOCYTES % (AUTO) 8.2 % (20.0-44.0); MEAN CORPUSCULAR HGB CONC 32 g/dl (31.0-36.0); MEAN CORPUSCULAR VOLUME 96 fL (80-96); MONOCYTES # (AUTO) 0.6 /CMM (0.1-1.30); MONOCYTES % (AUTO) 2.8 % (2.0-12.0); NEUTROPHILS # (AUTO) 18.4 /CMM (1.8-8.9); NEUTROPHILS % (AUTO) 88.9 % (43.0-81.0); PLATELET COUNT (AUTO) 115 /CMM (150-450); RED BLOOD CELL COUNT(AUTO) 2.32 MIL/uL (4.5-6.0); WHITE BLOOD COUNT (AUTO) 20.7 K/uL (4.3-11.0)
[2020-09-08 04:58] LABS: CALCIUM, SERUM 6.2 mg/dL (8.5-10.1); CARBON DIOXIDE 11 mmol/L (21-32); CHLORIDE 123 mmol/L (98-107); GLUCOSE 157 mg/dL (74-106); MAGNESIUM 2.7 mg/dL (1.8-2.4); PHOSPHORUS 7.6 mg/dL (2.5-4.9); POTASSIUM 4.1 mmol/L (3.5-5.1); SODIUM SERUM 155 mmol/L (136-145)
[2020-09-08 05:01] LABS: UREA NITROGEN, BLOOD 106 mg/dL (7-18)
[2020-09-08] MEDS: IV D5W 1,000 ML IV PRN (06:00)
[2020-09-08] MEDS ORDERED: NOREPINEPHRINE 4 MG/4 ML AMPUL IV ONE (06:13)
[2020-09-08] MEDS: NOREPINEPHRINE 8 MG in IV NS 0.9% 242 ML IV PRN (06:23)
[2020-09-08] MEDS: INSULIN REGULAR, HUMAN 100 UNIT/ML 3 ML VIAL SQ PRN (08:06)
[2020-09-08] MEDS: SOTALOL HCL 80 MG TABLET PO SCH (09:00)
[2020-09-08] MEDS: DUTASTERIDE (0.5 MG) 0.5 MG CAPSULE PO SCH (09:00)
[2020-09-08] MEDS: DULOXETINE HCL 20 MG CAPSULE.DR PO SCH (09:00)
[2020-09-08] MEDS: ATORVASTATIN 10 MG TABLET PO SCH (09:00)
[2020-09-08] MEDS: NITROGLYCERIN 30 GM TUBE TP SCH (09:43)
[2020-09-08] MEDS ORDERED: HYDROCORTISONE SOD SUCCINATE 100 MG/2 ML VIAL IV SCH (10:00)
--- NOTE | 2020-09-08 11:40 | NUR ---
INVENTORY AUDITOR NOTE DAUGHTER FITO CAME TO SEE PATIENT PER SHANTELL, SECURITY SERVICES MANAGER APPROVED. DAUGHTER AGREED TO PLACE PATIENT DNR AND SHE WILL DISCUSS INTUBATION OPTION WITH SHANTELL. ALL BELONGINGS TAKEN BY NICOLE PAYTON. RELAYED LACTIC ACID RESULTS TO SHANTELL WITH ORDERS FOR STAT ABG AND 1/2NS BOLUS NOW, NOTED AND CARRIED OUT. WILL CONTINUE TO MONITOR.
[2020-09-08 11:47] LABS: ABG BASE EXCESS -17.8 mmol/L; ABG OXYGEN SATURATION 84.5 % (92.0-98.5); ABG PCO2 20.5 mmHg (35.0-45.0); ABG PO2 66.1 mmHg (75.0-100.0); AaDO2 195.5 mmHg; COHb 1.3 % (0.5-1.5); MetHb 0.6 % (0.0-1.5); O2Hb 82.9 % (94.0-97.0); SITE, ABG Left Radial
--- NOTE | 2020-09-08 12:08 | NUR ---
INFORMATION AND REFERRAL DIRECTOR NOTE DR GARCIA AT BEDSIDE, ABG RELAYED TO DR GARCIA WITH ORDERS NOTED, SPOKE WITH DAUGHTER FITO REGARDS TO RESULTS AND POSSIBLE NEED FOR INTUBATION. WILL CONTINUE TO MONITOR.
[2020-09-08] MEDS ORDERED: Sodium Bicarbonate 150 MEQ in IV D5W 1,000 ML IV ONE (12:30)
[2020-09-08] MEDS ORDERED: Sodium Bicarbonate 150 MEQ in IV D5W 1,000 ML IV SCH (13:00)
[2020-09-08] MEDS ORDERED: METOCLOPRAMIDE HCL 10 MG/2 ML VIAL IV ONE (13:00)
--- NOTE | 2020-09-08 13:07 | NUR ---
DIRECTOR OF TECHNOLOGY NOTE INFORMED SHANTELL REGARDING RIGHT ARM SWELLING, WITH ORDERS FOR DOPPLER. INFORMED REGARDING FUSION OPERATOR ATTEMPTED TO PLACE NGT BUT WAS UNSUCCESSFUL AND WAS BLEEDING. WITH ORDERS RECEIVED FOR REGLAN 10MG IVP ONE TIME, AND SHE WILL ATTEMPT TO PLACE NGT. WILL CONTINUE TO MONITOR.
[2020-09-08] MEDS ORDERED: LIDOCAINE 2% JEL 5 ML TUBE MC ONE (14:30)
--- NOTE | 2020-09-08 14:41 | NUR ---
agriculture internship note relayed to dr mendes cortisol level 90, with orders to dc daysi contreras
--- NOTE | 2020-09-08 15:11 | NUR ---
ENGINEERING TEACHER NOTE S/P PICC LINE PLACEMENT ON LUE, PER PICC LINE NURSE OK TO USE PICC LINE, NO NEED FOR XRAY.
--- NOTE | 2020-09-08 15:23 | NUR ---
CREDIT COLLECTOR NOTE RECEIVED CALL FROM DR MCMAHON, CANDELARIO NUMBER, GIVEN. UPDATES GIVEN.
[2020-09-08] MEDS ORDERED: NOREPINEPHRINE 32 MG in IV NS 0.9% 218 ML IV PRN (15:30)
[2020-09-08 17:12] LABS: BASOPHILS % (AUTO) 0.2 % (0.0-2.0); EOSINOPHILS % (AUTO) 0.1 % (0.0-6.0); LYMPHOCYTES # (AUTO) 1.4 /CMM (0.8-4.8); LYMPHOCYTES % (AUTO) 6.1 % (20.0-44.0); MEAN CORPUSCULAR HGB CONC 30 g/dl (31.0-36.0); MEAN CORPUSCULAR VOLUME 100 fL (80-96); MONOCYTES # (AUTO) 0.6 /CMM (0.1-1.30); MONOCYTES % (AUTO) 2.6 % (2.0-12.0); NEUTROPHILS # (AUTO) 20.8 /CMM (1.8-8.9); PLATELET COUNT (AUTO) 100 /CMM (150-450); RED BLOOD CELL COUNT(AUTO) 2.15 MIL/uL (4.5-6.0); WHITE BLOOD COUNT (AUTO) 22.9 K/uL (4.3-11.0)
--- NOTE | 2020-09-08 17:17 | NUR ---
PHOTOGRAPHIC EQUIPMENT ASSEMBLER NOTE 1200-PATIENT PLACED ON 8LPM SIMPLE MASK, PATIENT NOTED DESATURATION WITH 2LPM NC 80'S WILL CONTINUE TO MONITOR. 1300-PATIENT PLACED ON NON-REBREATHER, WITH GOOD SATURATION. 1330- SEEN AND EXAMINED BY DR IBARRA. NOTED WITH BLADDER DISTENTION, JON REEVALUATED AND REMOVED WITH LARGE AMOUNT OF URINE OUTPUT CAME OUT WHILE DEFLATING JON CATHETER BALLOON. SHANTELL AT BEDSIDE WITH ORDERS TO DO BLADDER SCAN, BLADDER SCAN WAS DONE AND NOTED WITH >500ML OF URINE IN THE BLADDER. WAITING FOR EQUIPMENT AND MEDICATION TO REINSERT JON CATHETER. 1600-LIDOCAINE ARRIVED, CHARGE NURSE ATTEMPTED TO PLACE JON CATHETER WITH DIFFERENT SIZES, BUT HE FELT RESISTANCE, AND BLEEDING NOTED. SHANTELL MADE AWARE. SHE WILL ATTEMPT IT HERSELF. 1630-SHANTELL WAS NOT SUCCESSFUL WITH JON INSERTION. WAITING FOR CAUDE. WILL CONTINUE TO MONITOR. 1800- ER NURSE CAME WITH CAUDE AND WAS ABLE TO SUCCESSFULLY INSERT JON, DARK RED BLOOD CAME OUT, WITH 550ML OUTPUT. CHARGE NURSE AT BEDSIDE MANUALLY FLUSHING JON. WILL CONTINUE TO MONITOR.
[2020-09-08 17:19] LABS: ALANINE AMINOTRANSFERASE 493 U/L (12-78); ALKALINE PHOSPHATASE 82 U/L (46-116); ASPARTATE AMINOTRANSFERASE 886 U/L (15-37); BILIRUBIN,TOTAL 0.7 mg/dL (0.2-1.0); CARBON DIOXIDE 12 mmol/L (21-32); CHLORIDE 112 mmol/L (98-107); POTASSIUM 5.5 mmol/L (3.5-5.1); SODIUM SERUM 146 mmol/L (136-145); TOTAL PROTEIN, SERUM 3.6 g/dL (6.4-8.2)
[2020-09-08 17:20] LABS: HEMATOCRIT 22 % (39-51); HEMOGLOBIN 6.5 g/dL (13.5-17.5)
[2020-09-08 17:23] LABS: GLUCOSE 372 mg/dL (74-106); UREA NITROGEN, BLOOD 108 mg/dL (7-18)
[2020-09-08 17:24] LABS: ALBUMIN 1.2 g/dL (3.4-5.0)
--- NOTE | 2020-09-08 17:38 | NUR ---
KNIFE GRINDER NOTE RELAYED H/H AND LACTIC ACID RESULTS TO SHANTELL. WITH ORDERS NOTED. WILL CONTINUE TO MONITOR.
[2020-09-08 17:46] LABS: BAND % (MANUAL) 5 % (0.0-5.0); LYMPHOCYTES % (MANUAL) 10 % (16-48); NEUTROPHILS % (MANUAL) 85 (42-76)
[2020-09-08 18:23] LABS: OCCULT BLOOD STOOL POSITIVE (NEGATIVE)
--- NOTE | 2020-09-08 18:42 | NUR ---
MIDDLE SCHOOL TEACHER NOTE SHANTELL AT BEDSIDE WITH ORDERS FOR STAT ABG
--- NOTE | 2020-09-08 18:49 | NUR ---
SEO EXPERT NOTE CHARGE NURSE IRRIGATED JON WITH 3L NS, URINE PALE PINK. WILL CONTINUE TO MONITOR.
[2020-09-08] MEDS ORDERED: DEXTROSE 50%-WATER 50 ML DISP.SYRIN IV PRN (19:00)
[2020-09-08] MEDS ORDERED: INSULIN REGULAR, HUMAN 100 UNIT/ML 3 ML VIAL SQ PRN (19:00)
[2020-09-08 19:18] LABS: ABG BASE EXCESS -26.7 mmol/L; ABG PCO2 66.7 mmHg (35.0-45.0); ABG PO2 29.5 mmHg (75.0-100.0); AaDO2 616.8 mmHg; COHb 1.3 % (0.5-1.5); O2Hb 16.4 % (94.0-97.0); SITE, ABG Left Radial
[2020-09-08] MEDS ORDERED: SODIUM BICARBONATE SYR 50 MEQ/50 ML DISP.SYRIN IV ONE (19:30)
--- NOTE | 2020-09-08 19:45 | NUR ---
KRUNAL DONE INTUBATION NEEDED. JOHNY SPOKE TO FAMILY. FAMILY DECIDED TO MAKE PATIENT DNR/DNI.
[2020-09-08] MEDS ORDERED: MORPHINE SULFATE INJ 2 MG/ML DISP.SYRIN IV PRN (20:00)
[2020-09-08] MEDS ORDERED: MEROPENEM 500 MG in IV NS 0.9% 50 ML IV SCH (20:00)
--- NOTE | 2020-09-08 20:20 | NUR ---
DAUGHTER SHANTELL CAME TO VISIT PATIENT. SPOKE TO JOHNY AND FAMILY DECIDED TO MAKE PATIENT COMFORT MEASURES ONLY. ORDERS GIVEN BY JOHNY TO GIVE MORPHINE AND ATIVAN.
[2020-09-08] MEDS ORDERED: MEROPENEM 500 MG VIAL IV ONE (20:26)
[2020-09-08] MEDS ORDERED: MORPHINE SULFATE INJ 4 MG/ML DISP.SYRIN IV PRN (20:30)
[2020-09-08] MEDS ORDERED: LORAZEPAM INJ 2 MG/ML VIAL IV PRN ×2 (20:30→21:30)
--- NOTE | 2020-09-08 20:52 | NUR ---
LEVO AND FLUIDS TURNED OFF. MORPHINE AND ATIVAN GIVEN.
[2020-09-08] MEDS ORDERED: MORPHINE SULFATE INJ 4 MG/ML DISP.SYRIN IM PRN (21:30)
--- NOTE | 2020-09-08 21:34 | NUR ---
PATIENT ASYSTOLE. TIME OF 2133
--- NOTE | 2020-09-08 21:38 | NUR ---
REVENUE ENFORCEMENT COLLECTION AGENT NOTIFIED OF PATIENT. JOHNY STINSON AND ICT SECURITY SPECIALIST MARILU DUFF NOTIFIED AT 2200
--- NOTE | 2020-09-08 22:17 | NUR ---
[facility] CALLED AT 2009 SPOKE WITH CELIA. REF# [id number]
[2020-09-09] MEDS ORDERED: BLOOD SUGAR DIAGNOSTIC 1 EACH STRIP IN SCH
[2020-09-09] MEDS ORDERED: MEROPENEM 500 MG in IV NS 0.9% 50 ML IV SCH (08:00)
[2020-09-09] MEDS ORDERED: VANCOMYCIN 1 GM in IV D5W 250 ML IV SCH (10:00)
== END 2020-09-08 21:34 | disposition expired | DRG 871 ==
LOC: ER 12:59 → TELE2 16:59 → ICU 09-07 19:58
PROVIDERS: ADMIT Internal Medicine; ATTEND Nurse Practitioner Acute Care
PROC: 30233L1 Transfusion of Nonautologous Fresh Plasma into Peripheral Vein, Percutaneous Approach (ICD-10-PCS; principal; 2020-08-30)
PROC: 05H933Z Insertion of Infusion Device into Right Brachial Vein, Percutaneous Approach (ICD-10-PCS; 2020-09-06)
PROC: 05HA33Z Insertion of Infusion Device into Left Brachial Vein, Percutaneous Approach (ICD-10-PCS; 2020-09-08)
PROC: B54NZZA Ultrasonography of Left Upper Extremity Veins, Guidance (ICD-10-PCS; 2020-09-08)
DX: A41.89 Other specified sepsis (principal); E43 Unspecified severe protein-calorie malnutrition; I21.A1 Myocardial infarction type 2; U07.1 COVID-19; J12.89 Other viral pneumonia; G92 Toxic encephalopathy; N17.0 Acute kidney failure with tubular necrosis; R65.21 Severe sepsis with septic shock; I63.9 Cerebral infarction, unspecified; K55.059 Acute (reversible) ischemia of intestine, part and extent unspecified; J96.01 Acute respiratory failure with hypoxia; M62.82 Rhabdomyolysis; E87.0 Hyperosmolality and hypernatremia; E87.2 Acidosis; N39.0 Urinary tract infection, site not specified; F41.9 Anxiety disorder, unspecified; F32.9 Major depressive disorder, single episode, unspecified; N18.9 Chronic kidney disease, unspecified; N40.0 Benign prostatic hyperplasia without lower urinary tract symptoms; K21.9 Gastro-esophageal reflux disease without esophagitis; Z51.5 Encounter for palliative care; Z66 Do not resuscitate; E11.40 Type 2 diabetes mellitus with diabetic neuropathy, unspecified; Z96.659 Presence of unspecified artificial knee joint; Z98.890 Other specified postprocedural states; Z79.82 Long term (current) use of aspirin; Z79.899 Other long term (current) drug therapy; Z79.4 Long term (current) use of insulin; E86.0 Dehydration; E86.1 Hypovolemia; I48.91 Unspecified atrial fibrillation; I10 Essential (primary) hypertension; I70.0 Atherosclerosis of aorta; K44.9 Diaphragmatic hernia without obstruction or gangrene; M85.80 Other specified disorders of bone density and structure, unspecified site; E87.5 Hyperkalemia; E87.6 Hypokalemia; N28.1 Cyst of kidney, acquired; N32.89 Other specified disorders of bladder; S09.90XA Unspecified injury of head, initial encounter; X58.XXXA Exposure to other specified factors, initial encounter; Y92.099 Unspecified place in other non-institutional residence as the place of occurrence of the external cause; T14.8XXA Other injury of unspecified body region, initial encounter; T50.8X5A Adverse effect of diagnostic agents, initial encounter; Y92.9 Unspecified place or not applicable
CPT/HCPCS: 36415; 36600; 70450-TC; 70496-TC; 70498-TC; 71045-TC; 72125-TC; 80048-TC; 80053-TC; 80061-TC; 80076-TC; 81001; 82248-TC; 82272-TC; 82533; 82550-TC; 82553; 82728-TC; 82803-TC; 82962-TC; 83540-TC; 83605-TC; 83615-TC; 83735-TC; 83880; 84100-TC; 84153-TC; 84154-TC; 84439-TC; 84443-TC; 84484-TC; 85025-TC; 85378-TC; 85610-TC; 85652-TC; 85730-TC; 86140-TC; 86850-TC; 87040-TC; 87081-TC; 87086-TC; 90715; 92526; 92611-TC; 93307-TC; 93308-TC; 94799-TC; 95819-TC; 97110-TC; 97112-TC; 97116-TC; 97530-TC; A4217; A6403; C1751; G0378; J0282; J1100; J1650; J1720; J1815; J2060; J2185; J2270; J2543; J2765; J3370; J3490; J7030; J7040; J7050; J7060; J7070; P9017-BL; Q9967; U0003